=== PATIENT | male | born 1950 | race Two or more races ===

== ENCOUNTER 2020-03-06 07:10 | Inpatient (IN) | payer MEDICARE, OTHER ==
[~2020-03-06] VITALS: Ht 172.7 cm; Wt 68.0 kg
[2020-03-06] MEDS ORDERED: COLACE100 MG ORAL (07:39)
[2020-03-06] MEDS ORDERED: PAXIL20 MG ORAL (07:39)
[2020-03-06] MEDS ORDERED: NORVASC10 MG ORAL (07:39)
[2020-03-06] MEDS ORDERED: BENZTROPINE MESY1 MG ORAL (07:39)
[2020-03-06] MEDS ORDERED: QUETIAPINE FUM100 MG ORAL (07:39)
[2020-03-06 08:03] VITALS: BP 124/75
--- NOTE | 2020-03-06 08:22 | Emergency Room Report ---
History of Present Illness General Chief Complaint: General Complaint Source: EMS Present Illness HPI 69-year-old male presents for evaluation. Presents from snf facility. Per nursing staff they noticed a possible rectal prolapse yesterday. Patient has schizophrenia and is nonverbal at baseline. No signs of distress on arrival. No reported fevers or chills. No runny nose or congestion. No other aggravating relieving factors. No other associated symptoms Allergies: Coded Allergies: No Known Allergies (Unverified , 03/06/20) COVID-19 Screening Contact w/high risk pt: No Recent Travel to affected area: No Experienced COVID-19 symptoms?: No COVID-19 Testing performed SE[employer]ER: Yes COVID-19 Screening: Negative COVID-19 COVID-19 Testing Source: @ FACILITY 01/27 Patient History Past Medical History: COPD, psych hx Past Surgical History: none Pertinent Family History: none Social History: Denies: smoking, alcohol use, drug use Immunizations: UTD Reviewed Nursing Documentation: PMH: Agreed; PSxH: Agreed Nursing Documentation-PMH Hx Hypertension: Yes Hx COPD: Yes History Of Psychiatric Problem: Yes - SCHIZO Review of Systems All Other Systems: limited Physical Exam Vital Signs Date Time Temp Pulse Resp B/P (MAP) Pulse Ox O2 Delivery O2 Flow Rate FiO2 03/06/20 07:14 98.2 82 19 128/76 (93) 98 Room Air 03/06/20 08:03 96 Sp02 EP Interpretation: reviewed, normal General Appearance: no apparent distress, GCS 15, non-toxic, other - nonverbal Head: normocephalic Eyes: bilateral eye normal inspection, bilateral eye PERRL ENT: hearing grossly normal, normal pharynx, no angioedema, normal voice Neck: full range of motion, supple/symm/no masses Respiratory: chest non-tender, lungs clear, normal breath sounds, speaking full sentences Cardiovascular #1: regular rate, rhythm, no edema Gastrointestinal: normal bowel sounds, non tender, soft, non-distended, no guarding, no rebound Rectal: hemorrhoids - External hemorrhoid noted Genitourinary: no CVA tenderness Musculoskeletal: normal inspection Neurologic: other - nonverbal Psychiatric: other - nonverbal Skin: other - See nursing skin notes Lymphatic: normal inspection Medical Decision Making Diagnostic Impression: Primary Impression: Hemorrhoid prolapse Additional Impression: Renal insufficiency ER Course 69-year-old male presents with presumed rectal prolapse from snf facility Differentialhemorrhoids, rectal prolapse, small bowel obstruction Placed on stretcher. After initial history exam reveals elderly male in no acute distress. On exam there is a large thrombosed hemorrhoid noted. No obvious rectal prolapse at this point. Abdomen soft. EKG - NSR no acute ischemic changes interpreted by me Discussed with surgery. Given that we cannot confirm that this hemorrhoid is been there for less than 48 hours it is best advised not to incise in the ED. Patient will be evaluated by surgery for hemorrhoid as well as possible rectal prolapse. Renal deficiency noted on labs. IV fluids given. Patient be admitted to Dr. Smith's service diagnosishemorrhoid prolapse, renal insufficiency Patient admitted to floor in serious condition Labs Test 03/06/20 07:43 03/06/20 08:25 03/06/20 09:43 Prothrombin Time 12.5 SEC (9.30-11.50) Prothromb Time International Ratio 1.1 (0.9-1.1) Activated Partial Thromboplast Time 23 SEC (23-33) Sodium Level 142 MMOL/L (136-145) Potassium Level 3.6 MMOL/L (3.5-5.1) Chloride Level 104 MMOL/L (98-107) Carbon Dioxide Level 30 MMOL/L (21-32) Anion Gap 8 mmol/L (5-15) Blood Urea Nitrogen 20 mg/dL (7-18) Creatinine 1.9 MG/DL (0.55-1.30) Estimat Glomerular Filtration Rate 35.2 mL/min (>60) Glucose Level 85 MG/DL (74-106) Calcium Level 9.3 MG/DL (8.5-10.1) Total Bilirubin 0.2 MG/DL (0.2-1.0) Aspartate Amino Transf (AST/SGOT) 22 U/L (15-37) Alanine Aminotransferase (ALT/SGPT) 25 U/L (12-78) Alkaline Phosphatase 112 U/L (46-116) Total Protein 8.0 G/DL (6.4-8.2) Albumin 3.7 G/DL (3.4-5.0) Globulin 4.3 g/dL Albumin/Globulin Ratio 0.9 (1.0-2.7) Lipase 139 U/L (73-393) White Blood Count 4.4 K/UL (4.8-10.8) Red Blood Count 3.82 M/UL (4.70-6.10) Hemoglobin 12.6 G/DL (14.2-18.0) Hematocrit 40.0 % (42.0-52.0) Mean Corpuscular Volume 105 FL (80-99) Mean Corpuscular Hemoglobin 33.0 PG (27.0-31.0) Mean Corpuscular Hemoglobin Concent 31.4 G/DL (32.0-36.0) Red Cell Distribution Width 11.9 % (11.6-14.8) Platelet Count 172 K/UL (150-450) Mean Platelet Volume 9.1 FL (6.5-10.1) Neutrophils (%) (Auto) 63.7 % (45.0-75.0) Lymphocytes (%) (Auto) 24.8 % (20.0-45.0) Monocytes (%) (Auto) 7.1 % (1.0-10.0) Eosinophils (%) (Auto) 3.2 % (0.0-3.0) Basophils (%) (Auto) 1.2 % (0.0-2.0) EKG Diagnostic Results Rate: normal Rhythm: NSR ST Segments: no acute changes ASA given to the pt in ED: No Rhythm Strip Diag. Results EP Interpretation: yes Rhythm: NSR, no PVC's, no ectopy Last Vital Signs Date Time Temp Pulse Resp B/P (MAP) Pulse Ox O2 Delivery O2 Flow Rate FiO2 03/06/20 08:03 98.2 80 20 124/75 96 Room Air 03/06/20 08:03 96 Status: improved Disposition: ADMITTED INPATIENT Condition: Serious Referrals: Rene Smith DO (PCP) Pravin Weeks MD Mar 06, 2020 08:22
[2020-03-06 08:26] LABS: ANION GAP 8 mmol/L (5-15); BLOOD UREA NITROGEN 20 mg/dL (7-18); CALCIUM 9.3 MG/DL (8.5-10.1); CARBON DIOXIDE 30 MMOL/L (21-32); CHLORIDE 104 MMOL/L (98-107); CREATININE 1.9 MG/DL (0.55-1.30); POTASSIUM 3.6 MMOL/L (3.5-5.1); SODIUM 142 MMOL/L (136-145)
[2020-03-06 08:29] LABS: INR 1.1 (0.9-1.1)
[2020-03-06 08:31] LABS: ALANINE AMINOTRANSFERASE 25 U/L (12-78); ALBUMIN 3.7 G/DL (3.4-5.0); ALBUMIN/GLOBULIN RATIO 0.9 (1.0-2.7); ALKALINE PHOSPHATASE 112 U/L (46-116); ASPARTATE AMINO TRANSFERASE 22 U/L (15-37); BILIRUBIN,TOTAL 0.2 MG/DL (0.2-1.0)
[2020-03-06 08:42] LABS: BASOPHILS % (AUTO) 1.2 % (0.0-2.0); EOSINOPHILS % (AUTO) 3.2 % (0.0-3.0); HEMOGLOBIN 12.6 G/DL (14.2-18.0); LYMPHOCYTES % (AUTO) 24.8 % (20.0-45.0); MEAN CORPUSCULAR VOLUME 105 FL (80-99); MONOCYTES % (AUTO) 7.1 % (1.0-10.0); NEUTROPHILS % (AUTO) 63.7 % (45.0-75.0); PLATELET COUNT 172 K/UL (150-450); RED BLOOD COUNT 3.82 M/UL (4.70-6.10); RED CELL DISTRIBUTION WIDTH 11.9 % (11.6-14.8); WHITE BLOOD COUNT 4.4 K/UL (4.8-10.8)
[2020-03-06 09:30] VITALS: BP 131/80
[2020-03-06 10:01] LABS: APPEARANCE,URINE CLEAR; BILIRUBIN, URINE NEGATIVE (NEGATIVE); COLOR,URINE PALE YELLOW; GLUCOSE, URINE (UA) NEGATIVE (NEGATIVE); KETONES,URINE NEGATIVE (NEGATIVE); LEUKOCYTE ESTERASE ,URINE 3+ (NEGATIVE); NITRITE,URINE NEGATIVE (NEGATIVE); PH,URINE 6 (4.5-8.0); PROTEIN,URINE NEGATIVE (NEGATIVE); UROBILINOGEN,URINE NORMAL MG/DL (0.0-1.0)
--- NOTE | 2020-03-06 10:45 | History and Physical Report ---
DATE OF ADMISSION: 03/06/2020 TIME SEEN: 9 a.m. CONSULTANTS: 1. Manny Wang MD 2. Sheng Martin MD 3. Yolis Cee MD CHIEF COMPLAINT: Rectal prolapse. BRIEF HISTORY: This is a 69-year-old male from [facility], who presents with above-mentioned diagnosis. The staff had noticed it. The patient was brought to [facility], being admitted to medical floor. Currently slightly confused in bed. No complaint. REVIEW OF SYSTEMS: Slightly confused. No chest pain. No shortness of breath. No nausea, vomiting, or diarrhea. PAST MEDICAL HISTORY: Includes hypertension and psych history. PAST SURGICAL HISTORY: Unknown. ALLERGIES: Denies. MEDICATIONS: We will obtain list shortly. SOCIAL HISTORY: Positive smoke. Positive alcohol. Positive marijuana use. OBJECTIVE: GENERAL: Calm in bed, oriented x1, in no acute distress. VITAL SIGNS: Temperature is 98 degrees, pulse 86, respirations 20, blood pressure 124/75. CARDIOVASCULAR: No murmurs. LUNGS: Distant and clear. ABDOMEN: Bowel sounds positive. Nontender. Nondistended. EXTREMITIES: Show no cyanosis or edema. NEUROLOGIC: The patient moves all extremities, slightly weak. LABORATORY AND DIAGNOSTIC DATA: Labs at this time show white count 4.4, H and H 12/40, platelets 172,000. BMP show BUN and creatinine 20/1.9, otherwise normal. INR is 1.1. ASSESSMENT: 1. Hypertension. 2. Psych history. 3. Rectal prolapse. PLAN: 1. Psych treatment. 2. Resume home medications. 3. PT and dietary evaluation. 4. CBC and BMP in the morning. 5. Possible surgery, Cardiology to clear the patient . Rene Smith D.O. DR: AXEL JOB#: [id number] CC:
--- NOTE | 2020-03-06 11:42 | Cardiac Electrophysiology PN ---
Subjective Subjective [id number] Objective Last 24 Hour Vital Signs Date Time Temp Pulse Resp B/P (MAP) Pulse Ox O2 Delivery O2 Flow Rate FiO2 03/06/20 09:30 97.2 59 18 131/80 (97) 97 03/06/20 09:11 98.2 87 19 130/79 99 Room Air 03/06/20 08:03 98.2 80 20 124/75 96 Room Air 03/06/20 08:03 86 20 Room Air 96 03/06/20 07:14 98.2 82 19 128/76 (93) 98 Room Air Laboratory Tests Test 03/06/20 07:43 03/06/20 08:25 03/06/20 09:43 Prothrombin Time 12.5 SEC (9.30-11.50) H Prothromb Time International Ratio 1.1 (0.9-1.1) Activated Partial Thromboplast Time 23 SEC (23-33) Sodium Level 142 MMOL/L (136-145) Potassium Level 3.6 MMOL/L (3.5-5.1) Chloride Level 104 MMOL/L (98-107) Carbon Dioxide Level 30 MMOL/L (21-32) Anion Gap 8 mmol/L (5-15) Blood Urea Nitrogen 20 mg/dL (7-18) H Creatinine 1.9 MG/DL (0.55-1.30) H Estimat Glomerular Filtration Rate 35.2 mL/min (>60) Glucose Level 85 MG/DL (74-106) Calcium Level 9.3 MG/DL (8.5-10.1) Total Bilirubin 0.2 MG/DL (0.2-1.0) Aspartate Amino Transf (AST/SGOT) 22 U/L (15-37) Alanine Aminotransferase (ALT/SGPT) 25 U/L (12-78) Alkaline Phosphatase 112 U/L (46-116) Total Protein 8.0 G/DL (6.4-8.2) Albumin 3.7 G/DL (3.4-5.0) Globulin 4.3 g/dL Albumin/Globulin Ratio 0.9 (1.0-2.7) L Lipase 139 U/L (73-393) White Blood Count 4.4 K/UL (4.8-10.8) L Red Blood Count 3.82 M/UL (4.70-6.10) L Hemoglobin 12.6 G/DL (14.2-18.0) L Hematocrit 40.0 % (42.0-52.0) L Mean Corpuscular Volume 105 FL (80-99) H Mean Corpuscular Hemoglobin 33.0 PG (27.0-31.0) H Mean Corpuscular Hemoglobin Concent 31.4 G/DL (32.0-36.0) L Red Cell Distribution Width 11.9 % (11.6-14.8) Platelet Count 172 K/UL (150-450) Mean Platelet Volume 9.1 FL (6.5-10.1) Neutrophils (%) (Auto) 63.7 % (45.0-75.0) Lymphocytes (%) (Auto) 24.8 % (20.0-45.0) Monocytes (%) (Auto) 7.1 % (1.0-10.0) Eosinophils (%) (Auto) 3.2 % (0.0-3.0) H Basophils (%) (Auto) 1.2 % (0.0-2.0) Urine Color Pale yellow Urine Appearance Clear Urine pH 6 (4.5-8.0) Urine Specific [place] 1.005 (1.005-1.035) Urine Protein Negative (NEGATIVE) Urine Glucose (UA) Negative (NEGATIVE) Urine Ketones Negative (NEGATIVE) Urine Blood 1+ (NEGATIVE) H Urine Nitrite Negative (NEGATIVE) Urine Bilirubin Negative (NEGATIVE) Urine Urobilinogen Normal MG/DL (0.0-1.0) Urine Leukocyte Esterase 3+ (NEGATIVE) H Urine RBC 2-4 /HPF (0 - 0) H Urine WBC 40-60 /HPF (0 - 0) H Urine Squamous Epithelial Cells Occasional /LPF Urine Bacteria Occasional /HPF (NONE) Sheng Martin MD Mar 06, 2020 11:42
[2020-03-06 12:00] VITALS: BP 116/70
--- NOTE | 2020-03-06 14:29 | Consultation ---
History of Present Illness General Date patient seen: Mar 06, 2020 Reason for Hospitalization: General Complaint Present Illness HPI This is a 69-year-old male with multi-medical committees who is a care facility patient psych history identified to have abnormal lesion around rectum thought to be rectal prolapse admitted for further care and management surgery called to evaluate and assist with care. Patient seen, patient evaluated, chart reviewed. Patient states he is well denies any pain no nausea vomiting fever chills states he is eating normal bowel movements and flatus. No complaints otherwise. Labs reviewed no imaging currently Allergies: Coded Allergies: No Known Allergies (Unverified , 03/06/20) COVID-19 Screening Contact w/high risk pt: No Recent Travel to affected area: No Experienced COVID-19 symptoms?: No Medication History Scheduled Amlodipine Besylate (Norvasc), 10 MG ORAL DAILY, (Reported) Benztropine Mesylate* (Benztropine Mesylate*), 1 MG ORAL BID, (Reported) Docusate Sodium* (Colace*), 100 MG ORAL DAILY, (Reported) Paroxetine Hcl* (Paxil*), 20 MG ORAL DAILY, (Reported) Quetiapine Fumarate* (Seroquel*), 100 MG ORAL DAILY, (Reported) Patient History Limited by: medical condition History Provided By: Patient, Medical Record, PMD Healthcare decision maker Resuscitation status Advanced Directive on File Past Medical/Surgical History Past Medical/Surgical History: (1) Hemorrhoid (2) Renal insufficiency (3) Hemorrhoid prolapse Review of Systems Review of Symptoms General ROS: no weight loss or fever Psychological ROS: no depression or mood changes, no memory loss Ophthalmic ROS: no visual changes or eye irritation ENT ROS: no nasal congestion, hearing loss, dizziness Allergy and Immunology ROS: no allergic symptoms or urticaria Hematological and Lymphatic ROS: no swollen glands, unusual bleeding or bruising Endocrine ROS: no polyuria, polydipsia, weight changes, temperature intolerance Respiratory ROS: no cough, shortness of breath, or wheezing Cardiovascular ROS: no chest pain or dyspnea on exertion Gastrointestinal ROS: denies abdominal pain, bright red blood in stool. Musculoskeletal ROS: no myalgias or arthralgias Neurological ROS: no TIA or stroke symptoms Dermatological ROS: no new or changing skin lesions, rashes or pruritis Physical Exam Physical Exam General appearance: alert, cooperative, no distress, appears stated age Head: Normocephalic, without obvious abnormality, atraumatic Eyes: conjunctivae/corneas clear. PERRL, EOM's intact. Fundi benign Throat: Lips, mucosa, and tongue normal. Teeth and gums normal Neck: supple, symmetrical, trachea midline, no adenopathy, thyroid: not enlarged, symmetric, no tenderness/mass/nodules, no carotid bruit and no JVD Lungs: clear to auscultation bilaterally Heart: regular rate and rhythm, S1, S2 normal, no murmur, click, rub or gallop Abdomen: soft, non-tender. Bowel sounds normal. No masses, no organomegaly Extremities: extremities normal, atraumatic, no cyanosis or edema Pulses: 2+ and symmetric Skin: Skin color, texture, turgor normal. No rashes or lesions Neurologic: Grossly normal rectal Left lateral thrombosed hemorrhoid identified nontender soft Last 24 Hour Vital Signs Date Time Temp Pulse Resp B/P (MAP) Pulse Ox O2 Delivery O2 Flow Rate FiO2 03/06/20 12:00 97.9 70 18 116/70 (85) 94 03/06/20 09:52 Room Air 03/06/20 09:30 97.2 59 18 131/80 (97) 97 03/06/20 09:11 98.2 87 19 130/79 99 Room Air 03/06/20 08:03 98.2 80 20 124/75 96 Room Air 03/06/20 08:03 86 20 Room Air 96 03/06/20 07:14 98.2 82 19 128/76 (93) 98 Room Air Laboratory Tests Test 03/06/20 07:43 03/06/20 08:25 03/06/20 09:43 Prothrombin Time 12.5 SEC (9.30-11.50) H Prothromb Time International Ratio 1.1 (0.9-1.1) Activated Partial Thromboplast Time 23 SEC (23-33) Sodium Level 142 MMOL/L (136-145) Potassium Level 3.6 MMOL/L (3.5-5.1) Chloride Level 104 MMOL/L (98-107) Carbon Dioxide Level 30 MMOL/L (21-32) Anion Gap 8 mmol/L (5-15) Blood Urea Nitrogen 20 mg/dL (7-18) H Creatinine 1.9 MG/DL (0.55-1.30) H Estimat Glomerular Filtration Rate 35.2 mL/min (>60) Glucose Level 85 MG/DL (74-106) Calcium Level 9.3 MG/DL (8.5-10.1) Total Bilirubin 0.2 MG/DL (0.2-1.0) Aspartate Amino Transf (AST/SGOT) 22 U/L (15-37) Alanine Aminotransferase (ALT/SGPT) 25 U/L (12-78) Alkaline Phosphatase 112 U/L (46-116) Total Protein 8.0 G/DL (6.4-8.2) Albumin 3.7 G/DL (3.4-5.0) Globulin 4.3 g/dL Albumin/Globulin Ratio 0.9 (1.0-2.7) L Lipase 139 U/L (73-393) White Blood Count 4.4 K/UL (4.8-10.8) L Red Blood Count 3.82 M/UL (4.70-6.10) L Hemoglobin 12.6 G/DL (14.2-18.0) L Hematocrit 40.0 % (42.0-52.0) L Mean Corpuscular Volume 105 FL (80-99) H Mean Corpuscular Hemoglobin 33.0 PG (27.0-31.0) H Mean Corpuscular Hemoglobin Concent 31.4 G/DL (32.0-36.0) L Red Cell Distribution Width 11.9 % (11.6-14.8) Platelet Count 172 K/UL (150-450) Mean Platelet Volume 9.1 FL (6.5-10.1) Neutrophils (%) (Auto) 63.7 % (45.0-75.0) Lymphocytes (%) (Auto) 24.8 % (20.0-45.0) Monocytes (%) (Auto) 7.1 % (1.0-10.0) Eosinophils (%) (Auto) 3.2 % (0.0-3.0) H Basophils (%) (Auto) 1.2 % (0.0-2.0) Urine Color Pale yellow Urine Appearance Clear Urine pH 6 (4.5-8.0) Urine Specific [place] 1.005 (1.005-1.035) Urine Protein Negative (NEGATIVE) Urine Glucose (UA) Negative (NEGATIVE) Urine Ketones Negative (NEGATIVE) Urine Blood 1+ (NEGATIVE) H Urine Nitrite Negative (NEGATIVE) Urine Bilirubin Negative (NEGATIVE) Urine Urobilinogen Normal MG/DL (0.0-1.0) Urine Leukocyte Esterase 3+ (NEGATIVE) H Urine RBC 2-4 /HPF (0 - 0) H Urine WBC 40-60 /HPF (0 - 0) H Urine Squamous Epithelial Cells Occasional /LPF Urine Bacteria Occasional /HPF (NONE) Height (Feet): 5 Height (Inches): 8.00 Weight (Pounds): 150 Medications Current Medications Medications (Trade) Dose Ordered Sig/Shine Route PRN Reason Start Time Stop Time Status Last Admin Dose Admin Clonidine HCl (Catapres Tab) 0.1 mg Q4H PRN ORAL For High Blood Pressure 03/06/20 11:45 06/04/20 11:44 Heparin Sodium (Porcine) (Heparin 5000 units/ml) 5,000 units Q12HR SUBQ 03/06/20 21:00 04/20/20 20:59 Lorazepam (Ativan) 1 mg Q6H PRN ORAL For Anxiety 03/06/20 14:00 03/13/20 13:59 Paroxetine HCl (Paxil) 20 mg DAILY ORAL 03/07/20 09:00 04/06/20 08:59 Quetiapine Fumarate (SEROqueL) 100 mg QHS ORAL 03/06/20 21:00 04/20/20 20:59 Assessment/Plan Problem List: (1) Hemorrhoid prolapse Assessment & Plan: See below ICD Codes: K64.8 - Other hemorrhoids SNOMED: 20106256 (2) Rectal prolapse Assessment & Plan: 69-year-old male abnormal rectal perirectal lesion thought to be potential rectal prolapse. On further evaluation this is a thrombosed hemorrhoid. Currently soft nontender mobile patient having normal bowel movements good rectal function examination proceeded without significant discomfort. Likely low bit more chronic than anticipated or noticed. No acute surgical intervention indicated recommended at this time recommend local care with hemorrhoid cream as needed. Okay for diet bowel regimen will monitor. Thank you for let me participate in patient's care ICD Codes: K62.3 - Rectal prolapse SNOMED: 32911571 Manny Wang Mar 06, 2020 14:29
[2020-03-06 16:00] VITALS: BP 125/80
--- NOTE | 2020-03-06 17:15 | Consultation ---
DATE OF CONSULTATION: 03/06/2020 CARDIOLOGY CONSULTATION CONSULTING PHYSICIAN: Sheng Martin MD REFERRING PHYSICIAN: Rene Smith DO REASON FOR CONSULTATION: Management of hypertension and preoperative clearance prior to rectal surgery. HISTORY OF PRESENT ILLNESS: The patient is a 69-year-old gentleman from [facility] with history of hypertension and schizophrenia, who was brought into the hospital for rectal prolapse. The patient is primarily nonverbal at baseline, although he is alert and responsive. The patient's blood pressure in the ER was 120/76 and heart rate of 82. Cardiology consultation was obtained for further followup and management. REVIEW OF SYSTEMS: Negative other than what was mentioned in history of present illness and is limited in view of his psych history. PAST MEDICAL HISTORY: As mentioned above. FAMILY HISTORY: Noncontributory. SOCIAL HISTORY: He lives in custodial. Does not smoke or drink alcohol. PHYSICAL EXAMINATION: VITAL SIGNS: Blood pressure is 131/80, pulse 69, respirations 18, and temperature 97.2. HEAD AND NECK: Showed no JVD. LUNGS: Clear. CARDIOVASCULAR: Shows regular S1 and S2 with no gallop or murmur. ABDOMEN: Soft. EXTREMITIES: No pitting edema. LABORATORY AND DIAGNOSTIC DATA: His labs show white count of 4.4, hematocrit 12.7, hematocrit of 40, and platelet count 172,000. Sodium 142, potassium 3.3, BUN of 20, creatinine 1.9, and glucose of 185. INR is 1.1. Urinalysis shows many bacteria, 1+ blood. ASSESSMENT AND PLAN: 1. History of hypertension. Blood pressure currently is stable. I will add p.r.n. clonidine to his medical regimen. 2. Rectal prolapse. We will get EKG and echocardiogram for preoperative evaluation in case the patient would need surgery. 3. History of schizophrenia. Thank you very much for allowing me to participate in the care of this patient. Please do not hesitate to contact me for any questions regarding my evaluation. Sheng Martin M.D. DR: DANIEL JOB#: [id number] CC:
[2020-03-06 20:00] VITALS: BP 99/74
--- NOTE | 2020-03-06 21:15 | Consultation ---
DATE OF CONSULTATION: 03/06/2020 CONSULTING PHYSICIAN: Yolis Cee MD. HISTORY OF PRESENT ILLNESS: Patient is a 69-year-old male patient. This patient came to the hospital because he had rectal prolapse. Came from [facility], but he has confusion, altered mental status. Patient is confused in bed and had some altered mental status, agitation, irritability. Came in from [facility]. He is confused, disorganized, and altered mental status. Currently, his cognition has declined below his baseline, worsened by stress of his medical illness. I saw and assessed the patient at bedside. He is very confused, disorganized. MEDICAL PROBLEMS: He has history of hemorrhoids , and rectal prolapse. ALLERGIES: No known drug allergies. PSYCHOTROPIC MEDICATIONS ON ADMISSION: Patient is currently on a psychotropic regimen consisting of Seroquel 100 mg at bedtime, Paxil 20 mg daily, Ativan 1 mg twice a day. SUBSTANCE ABUSE HISTORY: Patient has history of marijuana and alcohol abuse. FAMILY PSYCHIATRIC HISTORY: Denies. PAIN ASSESSMENT: 11/25 pain. DEVELOPMENTAL PROBLEMS: None. SOCIAL HISTORY: Patient is currently living . He is financially supported by [employer] and Medicare. PSYCHIATRIC HISTORY: History of paranoid schizophrenia, acute exacerbation, rule out depression with psychotic features. He is a poor historian. STRENGTHS: He is motivated to get better. He is relatively healthy. WEAKNESSES AND LIABILITIES: He is impulsive. He has got minimal support system. MENTAL STATUS EXAMINATION: This is a 69-year-old male. His appearance is disheveled. Attitude, irritable and agitated. Affect, guarded and restricted. Intellect poor. Mood, depressed and anxious. Motor activity, psychomotor agitation. Attention span is poor. Orientation x2. Speech is pressured, nonsensical. Thought process, disorganized and illogical. Insight and judgment is poor. DIAGNOSES: 1. Paranoid schizophrenia, acute exacerbation. 2. No secondary. 3. Medical, denies. 4. Psychosocial stressors, financial. 5. Functional impairment is mild. PLAN: Ativan 1 mg every 6 hours p.r.n. anxiety and agitation, Seroquel 100 mg at bedtime, Paxil 20 mg daily. Twenty minutes of cognitive behavioral therapy to help him identify his automatic negative thoughts, help him convert his negative thoughts to more positive thoughts to reduce depression, anxiety, suicidality. Twenty minutes of cognitive behavioral therapy provided. Chart reviewed. Discussed with staff. Seen and assessed in his room. Yolis Cee M.D. DR: SHERRY JOB#: [id number] CC:
[2020-03-06] MEDS: Heparin 5000 units/ml inj SUBQ SCH (21:29)
[2020-03-07] VITALS: BP 100/71
[2020-03-07 04:00] VITALS: BP 112/82
[2020-03-07 07:24] LABS: BASOPHILS % (AUTO) 1.3 % (0.0-2.0); EOSINOPHILS % (AUTO) 2.8 % (0.0-3.0); HEMATOCRIT 39.6 % (42.0-52.0); HEMOGLOBIN 12.8 G/DL (14.2-18.0); LYMPHOCYTES % (AUTO) 33.4 % (20.0-45.0); MEAN CORPUSCULAR VOLUME 103 FL (80-99); MONOCYTES % (AUTO) 9.8 % (1.0-10.0); NEUTROPHILS % (AUTO) 52.8 % (45.0-75.0); PLATELET COUNT 212 K/UL (150-450); RED BLOOD COUNT 3.86 M/UL (4.70-6.10); RED CELL DISTRIBUTION WIDTH 11.4 % (11.6-14.8); WHITE BLOOD COUNT 6.2 K/UL (4.8-10.8)
[2020-03-07 08:00] VITALS: BP 148/87
[2020-03-07 08:03] LABS: ANION GAP 9 mmol/L (5-15); BLOOD UREA NITROGEN 26 mg/dL (7-18); CALCIUM 9.2 MG/DL (8.5-10.1); CARBON DIOXIDE 28 MMOL/L (21-32); CHLORIDE 101 MMOL/L (98-107); CHOLESTEROL 142 MG/DL (< 200); HDL CHOLESTEROL 62 MG/DL (40-60); POTASSIUM 4.4 MMOL/L (3.5-5.1); SODIUM 138 MMOL/L (136-145); TRIGLYCERIDES 67 MG/DL (30-150)
--- NOTE | 2020-03-07 09:15 | Progress Note ---
DATE: 03/07/2020 SUBJECTIVE: This is a 69-year-old male patient. He has rectal prolapse, but this patient also has renal insufficiency. He has altered mental status, confusion, and decline in cognition below his baseline. That is why his attending has requested daily psychiatric consultation for the patient. MENTAL STATUS EXAMINATION: The patient is a 69-year-old male. Appearance is disheveled. Attitude, irritable and agitated. Affect, guarded and restricted. Intellect, poor. Mood, depressed and anxious. Motor activity, psychomotor agitation. Attention span is poor. Orientation x2. Speech is low volume and slurred. Thought process, disorganized and illogical. Insight and judgment is poor. DIAGNOSIS: Paranoid schizophrenia, acute exacerbation. PLAN: Treat the patient with Ativan 1 mg every six hours p.r.n. anxiety or agitation, Seroquel 100 mg nightly, and Paxil 20 mg daily. A 20 minutes of cognitive behavioral therapy to help him identify his automatic negative thoughts and help him convert his negative thoughts to more positive thoughts to reduce depression, anxiety, and mood lability. Chart reviewed. Discussed with staff. Seen and assessed in his room. Yolis Cee M.D. DR: HENOK JOB#: [id number] CC:
--- NOTE | 2020-03-07 09:25 | General Progress Note ---
Assessment/Plan Problem List: (1) HTN (hypertension) ICD Codes: I10 - Essential (primary) hypertension SNOMED: 87683006 (2) Psychiatric disorder ICD Codes: F99 - Mental disorder, not otherwise specified SNOMED: 35197223 (3) Renal insufficiency ICD Codes: N28.9 - Disorder of kidney and ureter, unspecified SNOMED: 715544636, 774208842 (4) Rectal prolapse ICD Codes: K62.3 - Rectal prolapse SNOMED: 19721785 Status: unchanged Assessment/Plan: pt diet sx f/u cbc bmp amf Subjective Constitutional: Reports: weakness Allergies: Coded Allergies: No Known Allergies (Unverified , 03/06/20) All Systems: reviewed and negative except above Subjective sl confused in room Objective Last 24 Hour Vital Signs Date Time Temp Pulse Resp B/P (MAP) Pulse Ox O2 Delivery O2 Flow Rate FiO2 03/07/20 04:00 98.4 68 20 112/82 (92) 97 03/07/20 00:00 98.2 80 20 100/71 (81) 94 03/06/20 20:05 Room Air 03/06/20 20:00 98.1 76 18 99/74 (82) 94 03/06/20 16:00 99.1 73 18 125/80 (95) 94 03/06/20 12:00 97.9 70 18 116/70 (85) 94 03/06/20 09:52 Room Air 03/06/20 09:30 97.2 59 18 131/80 (97) 97 Intake and Output 03/06/20 03/07/20 19:00 07:00 Intake Total 740 ml 800 ml Balance 740 ml 800 ml Intake Oral 240 ml 800 ml IV Total 500 ml # Voids 3 Laboratory Tests 03/06/20 09:43: Urine Color Pale yellow, Urine Appearance Clear, Urine pH 6, Urine Specific [place] 1.005, Urine Protein Negative, Urine Glucose (UA) Negative, Urine Ketones Negative, Urine Blood 1+H, Urine Nitrite Negative, Urine Bilirubin Negative, Urine Urobilinogen Normal, Urine Leukocyte Esterase 3+H, Urine RBC 2- 4H, Urine WBC 40-60H, Urine Squamous Epithelial Cells Occasional, Urine Bacteria Occasional 03/07/20 05:15: White Blood Count 6.2, Red Blood Count 3.86L, Hemoglobin 12.8L, Hematocrit 39.6L , Mean Corpuscular Volume 103H, Mean Corpuscular Hemoglobin 33.0H, Mean Corpuscular Hemoglobin Concent 32.2, Red Cell Distribution Width 11.4L, Platelet Count 212, Mean Platelet Volume 7.7, Neutrophils (%) (Auto) 52.8, Lymphocytes (%) (Auto) 33.4, Monocytes (%) (Auto) 9.8, Eosinophils (%) (Auto) 2.8, Basophils (%) (Auto) 1.3, Sodium Level 138, Potassium Level 4.4, Chloride Level 101, Carbon Dioxide Level 28, Anion Gap 9, Blood Urea Nitrogen 26H, Creatinine 2.0H, Estimat Glomerular Filtration Rate 33.2, Glucose Level 82, Calcium Level 9.2, Pro-B-Type Natriuretic Peptide 458H, Triglycerides Level 67, Cholesterol Level 142, LDL Cholesterol 67, HDL Cholesterol 62H, Cholesterol/HDL Ratio 2.3L, Thyroid Stimulating Hormone (TSH) 5.270H, Free Thyroxine 1.26 Height (Feet): 5 Height (Inches): 8.00 Weight (Pounds): 150 General Appearance: lethargic, confused EENT: normal ENT inspection Neck: normal alignment Cardiovascular: normal peripheral pulses, normal rate, regular rhythm Respiratory/Chest: chest wall non-tender, lungs clear, normal breath sounds Abdomen: normal bowel sounds, non tender, soft Extremities: normal inspection Edema: no edema noted Arm (L), no edema noted Arm (R), no edema noted Leg (L), no edema noted Leg (R), no edema noted Pedal (L), no edema noted Pedal (R), no edema noted Generalized Neurologic: motor weakness Skin: normal pigmentation, warm/dry Rene Smith DO Mar 07, 2020 09:25
[2020-03-07] MEDS: PARoxetine HCL 20mg tab ORAL SCH (09:36)
[2020-03-07] MEDS: Heparin 5000 units/ml inj SUBQ SCH ×2 (09:37→20:33)
[2020-03-07 12:00] VITALS: BP 133/76
--- NOTE | 2020-03-07 14:19 | Cardiac Electrophysiology PN ---
Subjective Subjective Alert in NAD. No CP or SOB. Off tele Objective Last 24 Hour Vital Signs Date Time Temp Pulse Resp B/P (MAP) Pulse Ox O2 Delivery O2 Flow Rate FiO2 03/07/20 09:00 Room Air 03/07/20 08:00 97.7 77 18 148/87 (107) 95 03/07/20 04:00 98.4 68 20 112/82 (92) 97 03/07/20 00:00 98.2 80 20 100/71 (81) 94 03/06/20 20:05 Room Air 03/06/20 20:00 98.1 76 18 99/74 (82) 94 03/06/20 16:00 99.1 73 18 125/80 (95) 94 Intake and Output 03/06/20 03/07/20 19:00 07:00 Intake Total 740 ml 800 ml Balance 740 ml 800 ml Intake Oral 240 ml 800 ml IV Total 500 ml # Voids 3 Laboratory Tests Test 03/07/20 05:15 White Blood Count 6.2 K/UL (4.8-10.8) Red Blood Count 3.86 M/UL (4.70-6.10) L Hemoglobin 12.8 G/DL (14.2-18.0) L Hematocrit 39.6 % (42.0-52.0) L Mean Corpuscular Volume 103 FL (80-99) H Mean Corpuscular Hemoglobin 33.0 PG (27.0-31.0) H Mean Corpuscular Hemoglobin Concent 32.2 G/DL (32.0-36.0) Red Cell Distribution Width 11.4 % (11.6-14.8) L Platelet Count 212 K/UL (150-450) Mean Platelet Volume 7.7 FL (6.5-10.1) Neutrophils (%) (Auto) 52.8 % (45.0-75.0) Lymphocytes (%) (Auto) 33.4 % (20.0-45.0) Monocytes (%) (Auto) 9.8 % (1.0-10.0) Eosinophils (%) (Auto) 2.8 % (0.0-3.0) Basophils (%) (Auto) 1.3 % (0.0-2.0) Sodium Level 138 MMOL/L (136-145) Potassium Level 4.4 MMOL/L (3.5-5.1) Chloride Level 101 MMOL/L (98-107) Carbon Dioxide Level 28 MMOL/L (21-32) Anion Gap 9 mmol/L (5-15) Blood Urea Nitrogen 26 mg/dL (7-18) H Creatinine 2.0 MG/DL (0.55-1.30) H Estimat Glomerular Filtration Rate 33.2 mL/min (>60) Glucose Level 82 MG/DL (74-106) Calcium Level 9.2 MG/DL (8.5-10.1) Pro-B-Type Natriuretic Peptide 458 pg/mL (0-125) H Triglycerides Level 67 MG/DL (30-150) Cholesterol Level 142 MG/DL (< 200) LDL Cholesterol 67 mg/dL (<100) HDL Cholesterol 62 MG/DL (40-60) H Cholesterol/HDL Ratio 2.3 (3.3-4.4) L Thyroid Stimulating Hormone (TSH) 5.270 uiU/mL (0.358-3.740) Free Thyroxine 1.26 NG/DL (0.76-1.46) Microbiology Date/Time Source Procedure Growth Status 03/06/20 09:43 Urine,Clean Catch Urine Culture - Preliminary NO GROWTH AFTER 24 HOURS Resulted Objective 1. Hypertension. Blood pressure currently is stable. On p.r.n. clonidine to his medical regimen. 2. Rectal prolapse.Actually its hemorrhoid per Dr Wang. No surgery scheduled. EKG RBBB and LAFB and echocardiogram Nl EF 3. History of schizophrenia. Sheng Martin MD Mar 07, 2020 14:19
[2020-03-07 16:00] VITALS: BP 132/79
--- NOTE | 2020-03-07 16:31 | Surgery Progress Note ---
Surgery Progress Note Subjective Symptoms: improved, pain absent, tolerating diet, voiding well, passing flatus , BM Objective Last 24 Hour Vital Signs Date Time Temp Pulse Resp B/P (MAP) Pulse Ox O2 Delivery O2 Flow Rate FiO2 03/07/20 09:00 Room Air 03/07/20 08:00 97.7 77 18 148/87 (107) 95 03/07/20 04:00 98.4 68 20 112/82 (92) 97 03/07/20 00:00 98.2 80 20 100/71 (81) 94 03/06/20 20:05 Room Air 03/06/20 20:00 98.1 76 18 99/74 (82) 94 I&O Intake and Output 03/06/20 03/07/20 19:00 07:00 Intake Total 740 ml 800 ml Balance 740 ml 800 ml Intake Oral 240 ml 800 ml IV Total 500 ml # Voids 3 Cardiovascular: RSR Respiratory: clear Abdomen: soft, non-tender, present bowel sounds Extremities: no edema, no tenderness, no cyanosis Laboratory Tests Test 03/07/20 05:15 White Blood Count 6.2 K/UL (4.8-10.8) Red Blood Count 3.86 M/UL (4.70-6.10) L Hemoglobin 12.8 G/DL (14.2-18.0) L Hematocrit 39.6 % (42.0-52.0) L Mean Corpuscular Volume 103 FL (80-99) H Mean Corpuscular Hemoglobin 33.0 PG (27.0-31.0) H Mean Corpuscular Hemoglobin Concent 32.2 G/DL (32.0-36.0) Red Cell Distribution Width 11.4 % (11.6-14.8) L Platelet Count 212 K/UL (150-450) Mean Platelet Volume 7.7 FL (6.5-10.1) Neutrophils (%) (Auto) 52.8 % (45.0-75.0) Lymphocytes (%) (Auto) 33.4 % (20.0-45.0) Monocytes (%) (Auto) 9.8 % (1.0-10.0) Eosinophils (%) (Auto) 2.8 % (0.0-3.0) Basophils (%) (Auto) 1.3 % (0.0-2.0) Sodium Level 138 MMOL/L (136-145) Potassium Level 4.4 MMOL/L (3.5-5.1) Chloride Level 101 MMOL/L (98-107) Carbon Dioxide Level 28 MMOL/L (21-32) Anion Gap 9 mmol/L (5-15) Blood Urea Nitrogen 26 mg/dL (7-18) H Creatinine 2.0 MG/DL (0.55-1.30) H Estimat Glomerular Filtration Rate 33.2 mL/min (>60) Glucose Level 82 MG/DL (74-106) Calcium Level 9.2 MG/DL (8.5-10.1) Pro-B-Type Natriuretic Peptide 458 pg/mL (0-125) H Triglycerides Level 67 MG/DL (30-150) Cholesterol Level 142 MG/DL (< 200) LDL Cholesterol 67 mg/dL (<100) HDL Cholesterol 62 MG/DL (40-60) H Cholesterol/HDL Ratio 2.3 (3.3-4.4) L Thyroid Stimulating Hormone (TSH) 5.270 uiU/mL (0.358-3.740) Free Thyroxine 1.26 NG/DL (0.76-1.46) Plan Problems: (1) Hemorrhoid prolapse Assessment & Plan: See below (2) Rectal prolapse Assessment & Plan: 69-year-old male abnormal rectal perirectal lesion thought to be potential rectal prolapse. On further evaluation this is a thrombosed hemorrhoid. Currently soft nontender mobile patient having normal bowel movements good rectal function examination proceeded without significant discomfort. Likely low bit more chronic than anticipated or noticed. No acute surgical intervention indicated recommended at this time recommend local care with hemorrhoid cream as needed. Okay for diet bowel regimen will monitor. Thank you for let me participate in patient's care stable comfortable walking around no complaints d/c planning Manny Wang Mar 07, 2020 16:31
[2020-03-07] MEDS: LORazepam 1mg tab ORAL PRN ×2 (17:47→22:16)
[2020-03-07 20:00] VITALS: BP 119/76
[2020-03-08] VITALS: BP 120/73
[2020-03-08 04:00] VITALS: BP 126/71
[2020-03-08 06:26] LABS: BASOPHILS % (AUTO) 1.5 % (0.0-2.0); EOSINOPHILS % (AUTO) 4.9 % (0.0-3.0); HEMATOCRIT 36.4 % (42.0-52.0); HEMOGLOBIN 11.7 G/DL (14.2-18.0); LYMPHOCYTES % (AUTO) 36.3 % (20.0-45.0); MEAN CORPUSCULAR VOLUME 103 FL (80-99); MONOCYTES % (AUTO) 9.9 % (1.0-10.0); NEUTROPHILS % (AUTO) 47.4 % (45.0-75.0); PLATELET COUNT 167 K/UL (150-450); RED BLOOD COUNT 3.54 M/UL (4.70-6.10); RED CELL DISTRIBUTION WIDTH 11.6 % (11.6-14.8); WHITE BLOOD COUNT 4.2 K/UL (4.8-10.8)
[2020-03-08 07:05] LABS: ANION GAP 8 mmol/L (5-15); BLOOD UREA NITROGEN 23 mg/dL (7-18); CALCIUM 8.4 MG/DL (8.5-10.1); CARBON DIOXIDE 28 MMOL/L (21-32); CHLORIDE 103 MMOL/L (98-107); CREATININE 1.8 MG/DL (0.55-1.30); POTASSIUM 3.9 MMOL/L (3.5-5.1); SODIUM 139 MMOL/L (136-145)
[2020-03-08 08:00] VITALS: BP 126/64
[2020-03-08] MEDS: PARoxetine HCL 20mg tab ORAL SCH (08:18)
[2020-03-08] MEDS: Heparin 5000 units/ml inj SUBQ SCH ×2 (08:23→21:00)
--- NOTE | 2020-03-08 09:20 | General Progress Note ---
Assessment/Plan Problem List: (1) HTN (hypertension) ICD Codes: I10 - Essential (primary) hypertension SNOMED: 05779259 (2) Psychiatric disorder ICD Codes: F99 - Mental disorder, not otherwise specified SNOMED: 44430668 (3) Renal insufficiency ICD Codes: N28.9 - Disorder of kidney and ureter, unspecified SNOMED: 160532981, 934286350 (4) Rectal prolapse ICD Codes: K62.3 - Rectal prolapse SNOMED: 95711371 Status: unchanged Assessment/Plan: pt diet sx f/u cbc bmp amf Subjective Allergies: Coded Allergies: No Known Allergies (Unverified , 03/06/20) All Systems: reviewed and negative except above Subjective sl confused in room Objective Last 24 Hour Vital Signs Date Time Temp Pulse Resp B/P (MAP) Pulse Ox O2 Delivery O2 Flow Rate FiO2 03/08/20 08:18 Room Air 03/08/20 08:00 97.5 76 18 126/64 (84) 100 03/08/20 04:00 98.5 81 20 126/71 (89) 97 03/08/20 00:00 98.3 83 20 120/73 (89) 99 03/07/20 21:00 Room Air 03/07/20 20:00 98.1 81 20 119/76 (90) 98 03/07/20 16:00 98.8 82 18 132/79 (96) 97 03/07/20 12:00 98.1 79 18 133/76 (95) 98 Intake and Output 03/07/20 03/08/20 19:00 07:00 Intake Total 1200 ml 600 ml Balance 1200 ml 600 ml Intake Oral 600 ml Other 1200 ml # Voids 3 Laboratory Tests 03/08/20 05:30: White Blood Count 4.2L, Red Blood Count 3.54L, Hemoglobin 11.7L, Hematocrit 36.4L, Mean Corpuscular Volume 103H, Mean Corpuscular Hemoglobin 33.1H, Mean Corpuscular Hemoglobin Concent 32.2, Red Cell Distribution Width 11.6, Platelet Count 167, Mean Platelet Volume 7.8, Neutrophils (%) (Auto) 47.4, Lymphocytes (% ) (Auto) 36.3, Monocytes (%) (Auto) 9.9, Eosinophils (%) (Auto) 4.9H, Basophils (%) (Auto) 1.5, Sodium Level 139, Potassium Level 3.9, Chloride Level 103, Carbon Dioxide Level 28, Anion Gap 8, Blood Urea Nitrogen 23H, Creatinine 1.8H, Estimat Glomerular Filtration Rate 37.5, Glucose Level 125H, Calcium Level 8.4L Height (Feet): 5 Height (Inches): 8.00 Weight (Pounds): 150 General Appearance: lethargic EENT: normal ENT inspection Neck: normal alignment Cardiovascular: normal peripheral pulses, normal rate, regular rhythm Respiratory/Chest: chest wall non-tender, lungs clear, normal breath sounds Abdomen: normal bowel sounds, non tender, soft Extremities: normal inspection Edema: no edema noted Arm (L), no edema noted Arm (R), no edema noted Leg (L), no edema noted Leg (R), no edema noted Pedal (L), no edema noted Pedal (R), no edema noted Generalized Neurologic: motor weakness Skin: normal pigmentation, warm/dry Rene Smith DO Mar 08, 2020 09:20
[2020-03-08 11:59] VITALS: BP 135/92
--- NOTE | 2020-03-08 12:14 | Consultation ---
Consult Note Consult Note I am asked to evaluate the patient at the request of Dr. Rene Smith for renal failure Patient seen in room 401. He is uncooperative. He is not a historian. Laboratory data are reviewed. Limited examination done due to patient's uncooperativeness. Emergency room note: 69-year-old male presents for evaluation. Presents from [facility] facility. Per nursing staff they noticed a possible rectal prolapse yesterday. Patient has schizophrenia and is nonverbal at baseline. No signs of distress on arrival. No reported fevers or chills. No runny nose or congestion. No other aggravating relieving factors. 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 Assessment/Plan Renal failure most likely chronic, may have an acute component superimposed. Evidence of UTI Anemia Hypothyroidism Hemorrhoid prolapse History of hypertension Schizophrenia Suggestions: Avoid nephrotoxic's Kidney ultrasound and chest x-ray ordered Keep the blood pressure in check Anemia work-up Continue per psych management Keep hydrated Flomax at bedtime Monitor renal parameters. Patient does not cooperate with physical examination. However I spent total of 1 hour on this patient to do the proper needed physical examination reviewed the old records from nursing homes (since patient does not have prior admission to [facility] ) and discussed with PMD. Clay Ruggiero MD Mar 08, 2020 12:14
[2020-03-08 13:44] LABS: ALANINE AMINOTRANSFERASE 22 U/L (12-78); ALBUMIN 3.2 G/DL (3.4-5.0); ALKALINE PHOSPHATASE 90 U/L (46-116); ASPARTATE AMINO TRANSFERASE 30 U/L (15-37); BILIRUBIN,DIRECT 0.1 MG/DL (0.0-0.3); BILIRUBIN,TOTAL 0.2 MG/DL (0.2-1.0); FERRITIN 58 NG/ML (8-388); PHOSPHORUS 3.1 MG/DL (2.5-4.9)
[2020-03-08] MEDS: LORazepam 1mg tab ORAL PRN (14:04)
[2020-03-08 14:24] LABS: % IRON SATURATION 45 % (15-50); IRON 112 ug/dL (50-175); TOTAL IRON BINDING CAPACITY 247 ug/dL (250-450)
--- NOTE | 2020-03-08 15:00 | Surgery Progress Note ---
Surgery Progress Note Subjective Symptoms: improved, pain absent, tolerating diet, voiding well, passing flatus , BM Objective Last 24 Hour Vital Signs Date Time Temp Pulse Resp B/P (MAP) Pulse Ox O2 Delivery O2 Flow Rate FiO2 03/08/20 11:59 98.0 63 16 135/92 (106) 94 03/08/20 08:18 Room Air 03/08/20 08:00 97.5 76 18 126/64 (84) 100 03/08/20 04:00 98.5 81 20 126/71 (89) 97 03/08/20 00:00 98.3 83 20 120/73 (89) 99 03/07/20 21:00 Room Air 03/07/20 20:00 98.1 81 20 119/76 (90) 98 03/07/20 16:00 98.8 82 18 132/79 (96) 97 I&O Intake and Output 03/07/20 03/08/20 19:00 07:00 Intake Total 1200 ml 600 ml Balance 1200 ml 600 ml Intake Oral 600 ml Other 1200 ml # Voids 3 Dressing: dry Wound: clean Cardiovascular: RSR Respiratory: clear Abdomen: soft, non-tender, present bowel sounds Extremities: no edema, no tenderness, no cyanosis Laboratory Tests Test 03/08/20 05:30 White Blood Count 4.2 K/UL (4.8-10.8) L Red Blood Count 3.54 M/UL (4.70-6.10) L Hemoglobin 11.7 G/DL (14.2-18.0) L Hematocrit 36.4 % (42.0-52.0) L Mean Corpuscular Volume 103 FL (80-99) H Mean Corpuscular Hemoglobin 33.1 PG (27.0-31.0) H Mean Corpuscular Hemoglobin Concent 32.2 G/DL (32.0-36.0) Red Cell Distribution Width 11.6 % (11.6-14.8) Platelet Count 167 K/UL (150-450) Mean Platelet Volume 7.8 FL (6.5-10.1) Neutrophils (%) (Auto) 47.4 % (45.0-75.0) Lymphocytes (%) (Auto) 36.3 % (20.0-45.0) Monocytes (%) (Auto) 9.9 % (1.0-10.0) Eosinophils (%) (Auto) 4.9 % (0.0-3.0) H Basophils (%) (Auto) 1.5 % (0.0-2.0) Sodium Level 139 MMOL/L (136-145) Potassium Level 3.9 MMOL/L (3.5-5.1) Chloride Level 103 MMOL/L (98-107) Carbon Dioxide Level 28 MMOL/L (21-32) Anion Gap 8 mmol/L (5-15) Blood Urea Nitrogen 23 mg/dL (7-18) H Creatinine 1.8 MG/DL (0.55-1.30) H Estimat Glomerular Filtration Rate 37.5 mL/min (>60) Glucose Level 125 MG/DL (74-106) H Hemoglobin A1c 5.8 % (4.3-6.0) Uric Acid 5.9 MG/DL (2.6-7.2) Calcium Level 8.4 MG/DL (8.5-10.1) L Phosphorus Level 3.1 MG/DL (2.5-4.9) Magnesium Level 2.1 MG/DL (1.8-2.4) Iron Level 112 ug/dL (50-175) Total Iron Binding Capacity 247 ug/dL (250-450) L Percent Iron Saturation 45 % (15-50) Unsaturated Iron Binding 135 ug/dL (112-346) Ferritin 58 NG/ML (8-388) Total Bilirubin 0.2 MG/DL (0.2-1.0) Direct Bilirubin 0.1 MG/DL (0.0-0.3) Aspartate Amino Transf (AST/SGOT) 30 U/L (15-37) Alanine Aminotransferase (ALT/SGPT) 22 U/L (12-78) Alkaline Phosphatase 90 U/L (46-116) Total Protein 6.6 G/DL (6.4-8.2) Albumin 3.2 G/DL (3.4-5.0) L Vitamin B12 Level 344 PG/ML (193-986) Folate 12.6 NG/ML (8.6-58.9) Plan Problems: (1) Hemorrhoid prolapse Assessment & Plan: See below (2) Rectal prolapse Assessment & Plan: 69-year-old male abnormal rectal perirectal lesion thought to be potential rectal prolapse. On further evaluation this is a thrombosed hemorrhoid. Currently soft nontender mobile patient having normal bowel movements good rectal function examination proceeded without significant discomfort. Likely low bit more chronic than anticipated or noticed. No acute surgical intervention indicated recommended at this time recommend local care with hemorrhoid cream as needed. Okay for diet bowel regimen will monitor. Thank you for let me participate in patient's care stable comfortable walking around no complaints d/c planning Manny Wang Mar 08, 2020 15:00
[2020-03-08 16:02] VITALS: BP 110/73
[2020-03-08] MEDS: Tamsulosin 0.4mg cap ORAL SCH (21:00)
[2020-03-09] VITALS: BP 115/70
[2020-03-09 04:00] VITALS: BP 118/76
[2020-03-09 07:02] LABS: BASOPHILS % (AUTO) 0.9 % (0.0-2.0); EOSINOPHILS % (AUTO) 1.6 % (0.0-3.0); HEMATOCRIT 37.4 % (42.0-52.0); LYMPHOCYTES % (AUTO) 17.1 % (20.0-45.0); MEAN CORPUSCULAR VOLUME 103 FL (80-99); MONOCYTES % (AUTO) 6.9 % (1.0-10.0); NEUTROPHILS % (AUTO) 73.5 % (45.0-75.0); PLATELET COUNT 169 K/UL (150-450); RED BLOOD COUNT 3.63 M/UL (4.70-6.10); RED CELL DISTRIBUTION WIDTH 11.3 % (11.6-14.8); WHITE BLOOD COUNT 7.8 K/UL (4.8-10.8)
[2020-03-09 07:29] LABS: ANION GAP 8 mmol/L (5-15); BLOOD UREA NITROGEN 19 mg/dL (7-18); CALCIUM 8.4 MG/DL (8.5-10.1); CARBON DIOXIDE 29 MMOL/L (21-32); CHLORIDE 100 MMOL/L (98-107); CREATININE 1.7 MG/DL (0.55-1.30); SODIUM 137 MMOL/L (136-145)
[2020-03-09 08:00] VITALS: BP 122/76
[2020-03-09] MEDS: PARoxetine HCL 20mg tab ORAL SCH (08:29)
[2020-03-09] MEDS: Heparin 5000 units/ml inj SUBQ SCH ×2 (08:30→20:08)
--- NOTE | 2020-03-09 08:31 | Progress Note ---
DATE: 03/08/2020 SUBJECTIVE: This is a 69-year-old male with rectal prolapse. He is confused, disorganized. He has got altered mental status, decline in cognition below baseline, that is why his attending has requested daily psychiatric consultation. MENTAL STATUS EXAMINATION: This is a 69-year-old male. His appearance is disheveled. Attitude, irritable and agitated. Affect, guarded and restricted. Intellect poor. Mood, depressed and anxious. Motor activity, psychomotor agitation. Attention span is poor. Orientation x2. Speech is pressured. Thought process, disorganized and illogical. Insight and judgment is poor. DIAGNOSIS: Paranoid schizophrenia, rule out major depression, . PLAN: . A 20-minutes of cognitive behavioral therapy to help him identify his automatic negative thoughts and help him convert his negative thoughts to more positive thoughts to reduce depression, anxiety, and mood lability. Chart reviewed and discussed with staff. Seen and assessed at bedside. Yolis Cee M.D. DR: Jose JOB#: [id number] CC:
--- NOTE | 2020-03-09 09:28 | Nephrology Progress Note ---
Assessment/Plan Problem List: (1) Renal insufficiency (2) Hemorrhoid prolapse (3) HTN (hypertension) (4) Anemia (5) UTI (urinary tract infection) Assessment Renal failure most likely chronic, may have an acute component superimposed. Evidence of UTI Anemia Hypothyroidism Hemorrhoid prolapse History of hypertension Schizophrenia Plan Avoid nephrotoxic's Kidney ultrasound and chest x-ray ordered, results pending Keep the blood pressure in check Anemia work-up Continue per psych management Keep hydrated Flomax at bedtime Monitor renal parameters. Subjective ROS Limited/Unobtainable: No Objective Objective Last 24 Hour Vital Signs Date Time Temp Pulse Resp B/P (MAP) Pulse Ox O2 Delivery O2 Flow Rate FiO2 03/09/20 09:00 Room Air 03/09/20 08:00 97.0 63 18 122/76 (91) 93 03/09/20 04:00 98.6 82 20 118/76 (90) 98 03/09/20 00:00 98.0 62 20 115/70 (85) 97 03/08/20 21:00 Room Air 03/08/20 16:02 98.1 52 18 110/73 (85) 95 03/08/20 11:59 98.0 63 16 135/92 (106) 94 Intake and Output 03/08/20 03/09/20 19:00 07:00 Intake Total 480 ml 750 ml Balance 480 ml 750 ml Intake Oral 480 ml 750 ml # Voids 2 3 Laboratory Tests 03/09/20 05:30: White Blood Count 7.8#, Red Blood Count 3.63L, Hemoglobin 12.0L, Hematocrit 37.4L, Mean Corpuscular Volume 103H, Mean Corpuscular Hemoglobin 33.0H, Mean Corpuscular Hemoglobin Concent 32.0, Red Cell Distribution Width 11.3L, Platelet Count 169, Mean Platelet Volume 8.0, Neutrophils (%) (Auto) 73.5, Lymphocytes (%) (Auto) 17.1L, Monocytes (%) (Auto) 6.9, Eosinophils (%) (Auto) 1.6, Basophils (%) (Auto) 0.9, Sodium Level 137, Potassium Level 4.0, Chloride Level 100, Carbon Dioxide Level 29, Anion Gap 8, Blood Urea Nitrogen 19H, Creatinine 1.7H, Estimat Glomerular Filtration Rate 40.0, Glucose Level 120H, Calcium Level 8.4L Height (Feet): 5 Height (Inches): 8.00 Weight (Pounds): 150 General Appearance: no apparent distress, other - Uncooperative Cardiovascular: normal rate Respiratory/Chest: decreased breath sounds Abdomen: soft Clay Ruggiero MD Mar 09, 2020 09:28
[2020-03-09] MEDS: Vitamin D 1000 IU Tab ORAL SCH (09:42)
--- NOTE | 2020-03-09 09:45 | Progress Note ---
DATE: 03/09/2020 SUBJECTIVE: This is a 69-year-old male with rectal prolapse. He is confused and disorganized. His mood labile. He has got no logical plan for his own self-care. That is why he does require acute psychiatric inpatient treatment at this time. He has got feelings of helplessness, hopelessness, low energy, poor appetite, and loss of interest in activity. He does have some mood lability. He has got rectal prolapse causing him to have altered mental status and decline in cognition below his baseline. MENTAL STATUS EXAMINATION: This is a 69-year-old male. Appearance is disheveled. Attitude, irritable and agitated. Affect, guarded and restricted. Intellect, poor. Mood, depressed and anxious. Motor activity, psychomotor agitation. Attention span is poor. Orientation x2. Speech is low volume and slurred. Thought process, disorganized and illogical. Insight and judgment is poor. DIAGNOSIS: Major depressive disorder, mild, recurrent with psychotic features, rule out dementia with psychosis. PLAN: Continue titrating up on his psychotropic medications. A 20 minutes of cognitive behavioral therapy to help him identify his automatic thoughts and convert those negative thoughts to more positive thoughts to reduce depression, anxiety, and mood lability. Chart reviewed. Discussed with staff. Seen and assessed at bedside. Yolis Cee M.D. DR: HENOK JOB#: [id number] CC:
--- NOTE | 2020-03-09 10:32 | Diagnostic Imaging Report ---
EXAM: ULTRASOUND US Renal Comp CLINICAL HISTORY: Abdominal pain. COMPARISON: None TECHNIQUE: Ultrasound examination of the kidney includes grayscale images, and color and spectral doppler analysis. FINDINGS: The right kidney measures 12.1 x 5.4 x 6.7 cm and the left kidney measures 12.8 x 7.2 x 6.6 cm. Both kidneys are diffusely echogenic likely reflecting medical renal disease. There are multiple bilateral renal cysts. Approximately 7 mm intrarenal stone noted in the upper to midportion of the right kidney. There is mild fullness of the right renal collecting system on prevoid images which improved on postvoid images. On the left side, there is moderate to severe hydronephrosis. Large shadowing stone at the lower pole perhaps a staghorn calculus. Prostate is not enlarged. There is a possible TURP defect noted. Urinary bladder is distended but appears trabeculated. Small bladder diverticulum noted. IMPRESSION: BILATERAL ECHOGENIC KIDNEYS WITH CYSTIC CHANGES. MILD RIGHT HYDRONEPHROSIS WHICH IMPROVED AFTER VOIDING. SMALL RIGHT INTRARENAL STONE. MODERATE TO SEVERE LEFT HYDRONEPHROSIS. LARGE SHADOWING CALCIFICATION LOWER POLE LEFT KIDNEY PERHAPS A STAGHORN CALCULUS. TRABECULATED URINARY BLADDER WITH A SMALL DIVERTICULUM.
--- NOTE | 2020-03-09 10:42 | General Progress Note ---
Assessment/Plan Problem List: (1) HTN (hypertension) ICD Codes: I10 - Essential (primary) hypertension SNOMED: 15483800 (2) Psychiatric disorder ICD Codes: F99 - Mental disorder, not otherwise specified SNOMED: 30039300 (3) Renal insufficiency ICD Codes: N28.9 - Disorder of kidney and ureter, unspecified SNOMED: 717662787, 513364024 (4) Rectal prolapse ICD Codes: K62.3 - Rectal prolapse SNOMED: 83731140 Status: unchanged Assessment/Plan: pt diet sx f/u cbc bmp am Subjective Constitutional: Reports: weakness Allergies: Coded Allergies: No Known Allergies (Unverified , 03/06/20) All Systems: reviewed and negative except above Subjective sl confused in room Objective Last 24 Hour Vital Signs Date Time Temp Pulse Resp B/P (MAP) Pulse Ox O2 Delivery O2 Flow Rate FiO2 03/09/20 09:00 Room Air 03/09/20 08:00 97.0 63 18 122/76 (91) 93 03/09/20 04:00 98.6 82 20 118/76 (90) 98 03/09/20 00:00 98.0 62 20 115/70 (85) 97 03/08/20 21:00 Room Air 03/08/20 16:02 98.1 52 18 110/73 (85) 95 03/08/20 11:59 98.0 63 16 135/92 (106) 94 Intake and Output 03/08/20 03/09/20 19:00 07:00 Intake Total 480 ml 750 ml Balance 480 ml 750 ml Intake Oral 480 ml 750 ml # Voids 2 3 Laboratory Tests 03/09/20 05:30: White Blood Count 7.8#, Red Blood Count 3.63L, Hemoglobin 12.0L, Hematocrit 37.4L, Mean Corpuscular Volume 103H, Mean Corpuscular Hemoglobin 33.0H, Mean Corpuscular Hemoglobin Concent 32.0, Red Cell Distribution Width 11.3L, Platelet Count 169, Mean Platelet Volume 8.0, Neutrophils (%) (Auto) 73.5, Lymphocytes (%) (Auto) 17.1L, Monocytes (%) (Auto) 6.9, Eosinophils (%) (Auto) 1.6, Basophils (%) (Auto) 0.9, Sodium Level 137, Potassium Level 4.0, Chloride Level 100, Carbon Dioxide Level 29, Anion Gap 8, Blood Urea Nitrogen 19H, Creatinine 1.7H, Estimat Glomerular Filtration Rate 40.0, Glucose Level 120H, Calcium Level 8.4L Height (Feet): 5 Height (Inches): 8.00 Weight (Pounds): 150 General Appearance: lethargic, confused EENT: normal ENT inspection Neck: normal alignment Cardiovascular: normal peripheral pulses, normal rate, regular rhythm Respiratory/Chest: chest wall non-tender, lungs clear, normal breath sounds Abdomen: normal bowel sounds, non tender, soft Extremities: normal inspection Edema: no edema noted Arm (L), no edema noted Arm (R), no edema noted Leg (L), no edema noted Leg (R), no edema noted Pedal (L), no edema noted Pedal (R), no edema noted Generalized Neurologic: motor weakness Skin: normal pigmentation, warm/dry Rene Smith DO Mar 09, 2020 10:41
--- NOTE | 2020-03-09 11:16 | Diagnostic Imaging Report ---
Procedure: XRAY Chest 1v Reason for study: Reason For Exam: COUGH Comparison films: None. FINDINGS: A single one view chest is obtained. Vascularity is normal. Emphysematous changes noted in the upper lungs right greater than left. There is crowding of markings in the lung bases with possible underlying interstitial lung disease. No definite acute infiltrate noted. Cardiac and mediastinal silhouette are within normal limits. No effusion seen. The bony thorax appear unremarkable. IMPRESSION: Bilateral upper lobe emphysematous changes right greater than left. Crowding of markings in the lung bases and possible underlying interstitial disease. No definite acute alveolar infiltrate.
[2020-03-09 12:00] VITALS: BP 109/71
--- NOTE | 2020-03-09 14:08 | Cardiac Electrophysiology PN ---
Assessment/Plan Assessment/Plan 1. Hypertension. On p.r.n. clonidine 2. Rectal prolapse.Actually its hemorrhoid per Dr Wang. No surgery scheduled. EKG RBBB and LAFB and echocardiogram Nl EF 3. History of schizophrenia. DW RN Subjective Subjective Alert in NAD. No CP or SOB. Off tele. Still has rectal bleeding Objective Last 24 Hour Vital Signs Date Time Temp Pulse Resp B/P (MAP) Pulse Ox O2 Delivery O2 Flow Rate FiO2 03/09/20 12:00 97.8 63 18 109/71 (84) 96 03/09/20 09:00 Room Air 03/09/20 08:00 97.0 63 18 122/76 (91) 93 03/09/20 04:00 98.6 82 20 118/76 (90) 98 03/09/20 00:00 98.0 62 20 115/70 (85) 97 03/08/20 21:00 Room Air 03/08/20 16:02 98.1 52 18 110/73 (85) 95 Intake and Output 03/08/20 03/09/20 19:00 07:00 Intake Total 480 ml 750 ml Balance 480 ml 750 ml Intake Oral 480 ml 750 ml # Voids 2 3 Laboratory Tests Test 03/09/20 05:30 White Blood Count 7.8 K/UL (4.8-10.8) # Red Blood Count 3.63 M/UL (4.70-6.10) L Hemoglobin 12.0 G/DL (14.2-18.0) L Hematocrit 37.4 % (42.0-52.0) L Mean Corpuscular Volume 103 FL (80-99) H Mean Corpuscular Hemoglobin 33.0 PG (27.0-31.0) H Mean Corpuscular Hemoglobin Concent 32.0 G/DL (32.0-36.0) Red Cell Distribution Width 11.3 % (11.6-14.8) L Platelet Count 169 K/UL (150-450) Mean Platelet Volume 8.0 FL (6.5-10.1) Neutrophils (%) (Auto) 73.5 % (45.0-75.0) Lymphocytes (%) (Auto) 17.1 % (20.0-45.0) L Monocytes (%) (Auto) 6.9 % (1.0-10.0) Eosinophils (%) (Auto) 1.6 % (0.0-3.0) Basophils (%) (Auto) 0.9 % (0.0-2.0) Sodium Level 137 MMOL/L (136-145) Potassium Level 4.0 MMOL/L (3.5-5.1) Chloride Level 100 MMOL/L (98-107) Carbon Dioxide Level 29 MMOL/L (21-32) Anion Gap 8 mmol/L (5-15) Blood Urea Nitrogen 19 mg/dL (7-18) H Creatinine 1.7 MG/DL (0.55-1.30) H Estimat Glomerular Filtration Rate 40.0 mL/min (>60) Glucose Level 120 MG/DL (74-106) H Calcium Level 8.4 MG/DL (8.5-10.1) L Objective HEAD AND NECK: No JVD. LUNGS: Clear. CARDIOVASCULAR: Regular S1 and S2 with no gallop or murmur. ABDOMEN: Soft. EXTREMITIES: No pitting edema. Sheng Martin MD Mar 09, 2020 14:08
[2020-03-09 16:00] VITALS: BP 111/60
[2020-03-09 19:54] VITALS: BP 130/80
[2020-03-09] MEDS: Tamsulosin 0.4mg cap ORAL SCH (20:06)
--- NOTE | 2020-03-09 21:34 | Surgery Progress Note ---
Surgery Progress Note Subjective Symptoms: improved, pain absent, tolerating diet, voiding well, passing flatus , BM Objective Last 24 Hour Vital Signs Date Time Temp Pulse Resp B/P (MAP) Pulse Ox O2 Delivery O2 Flow Rate FiO2 03/09/20 20:33 Room Air 03/09/20 19:54 97.2 56 20 130/80 (97) 94 03/09/20 16:00 98.0 54 18 111/60 (77) 94 03/09/20 12:00 97.8 63 18 109/71 (84) 96 03/09/20 09:00 Room Air 03/09/20 08:00 97.0 63 18 122/76 (91) 93 03/09/20 04:00 98.6 82 20 118/76 (90) 98 03/09/20 00:00 98.0 62 20 115/70 (85) 97 I&O Intake and Output 03/08/20 03/09/20 19:00 07:00 Intake Total 480 ml 750 ml Balance 480 ml 750 ml Intake Oral 480 ml 750 ml # Voids 2 3 Cardiovascular: RSR Respiratory: clear Abdomen: soft, flat, non-tender, present bowel sounds Extremities: no edema, no tenderness, no cyanosis Laboratory Tests Test 03/09/20 05:30 White Blood Count 7.8 K/UL (4.8-10.8) # Red Blood Count 3.63 M/UL (4.70-6.10) L Hemoglobin 12.0 G/DL (14.2-18.0) L Hematocrit 37.4 % (42.0-52.0) L Mean Corpuscular Volume 103 FL (80-99) H Mean Corpuscular Hemoglobin 33.0 PG (27.0-31.0) H Mean Corpuscular Hemoglobin Concent 32.0 G/DL (32.0-36.0) Red Cell Distribution Width 11.3 % (11.6-14.8) L Platelet Count 169 K/UL (150-450) Mean Platelet Volume 8.0 FL (6.5-10.1) Neutrophils (%) (Auto) 73.5 % (45.0-75.0) Lymphocytes (%) (Auto) 17.1 % (20.0-45.0) L Monocytes (%) (Auto) 6.9 % (1.0-10.0) Eosinophils (%) (Auto) 1.6 % (0.0-3.0) Basophils (%) (Auto) 0.9 % (0.0-2.0) Sodium Level 137 MMOL/L (136-145) Potassium Level 4.0 MMOL/L (3.5-5.1) Chloride Level 100 MMOL/L (98-107) Carbon Dioxide Level 29 MMOL/L (21-32) Anion Gap 8 mmol/L (5-15) Blood Urea Nitrogen 19 mg/dL (7-18) H Creatinine 1.7 MG/DL (0.55-1.30) H Estimat Glomerular Filtration Rate 40.0 mL/min (>60) Glucose Level 120 MG/DL (74-106) H Calcium Level 8.4 MG/DL (8.5-10.1) L Plan Problems: (1) Hemorrhoid prolapse Assessment & Plan: See below (2) Rectal prolapse Assessment & Plan: 69-year-old male abnormal rectal perirectal lesion thought to be potential rectal prolapse. On further evaluation this is a thrombosed hemorrhoid. Currently soft nontender mobile patient having normal bowel movements good rectal function examination proceeded without significant discomfort. Likely low bit more chronic than anticipated or noticed. No acute surgical intervention indicated recommended at this time recommend local care with hemorrhoid cream as needed. Okay for diet bowel regimen will monitor. Thank you for let me participate in patient's care stable comfortable walking around no complaints d/c planning pending d/c Manny Wang Mar 09, 2020 21:34
[2020-03-10] VITALS: BP_SYST 108; BP_SYST 126; BP_DIAS 50; BP_DIAS 70
[2020-03-10 04:00] VITALS: BP 115/79
[2020-03-10] MEDS: LORazepam 1mg tab ORAL PRN (05:11)
[2020-03-10 06:47] LABS: BASOPHILS % (AUTO) 1.1 % (0.0-2.0); EOSINOPHILS % (AUTO) 2.9 % (0.0-3.0); HEMATOCRIT 37.3 % (42.0-52.0); HEMOGLOBIN 11.8 G/DL (14.2-18.0); LYMPHOCYTES % (AUTO) 29.3 % (20.0-45.0); MEAN CORPUSCULAR VOLUME 103 FL (80-99); MONOCYTES % (AUTO) 8.3 % (1.0-10.0); NEUTROPHILS % (AUTO) 58.3 % (45.0-75.0); PLATELET COUNT 152 K/UL (150-450); RED BLOOD COUNT 3.61 M/UL (4.70-6.10); RED CELL DISTRIBUTION WIDTH 11.2 % (11.6-14.8); WHITE BLOOD COUNT 5.4 K/UL (4.8-10.8)
[2020-03-10 07:16] LABS: ALANINE AMINOTRANSFERASE 21 U/L (12-78); ALBUMIN 2.8 G/DL (3.4-5.0); ALBUMIN/GLOBULIN RATIO 0.8 (1.0-2.7); ALKALINE PHOSPHATASE 81 U/L (46-116); ANION GAP 6 mmol/L (5-15); ASPARTATE AMINO TRANSFERASE 26 U/L (15-37); BILIRUBIN,TOTAL 0.2 MG/DL (0.2-1.0); BLOOD UREA NITROGEN 17 mg/dL (7-18); CARBON DIOXIDE 29 MMOL/L (21-32); CHLORIDE 105 MMOL/L (98-107); CREATININE 1.9 MG/DL (0.55-1.30); POTASSIUM 4.1 MMOL/L (3.5-5.1); SODIUM 140 MMOL/L (136-145)
[2020-03-10 08:00] VITALS: BP 106/72
[2020-03-10] MEDS: Vitamin D 1000 IU Tab ORAL SCH (08:52)
[2020-03-10] MEDS: Heparin 5000 units/ml inj SUBQ SCH ×2 (08:52→20:32)
[2020-03-10] MEDS: PARoxetine HCL 20mg tab ORAL SCH (08:53)
--- NOTE | 2020-03-10 10:19 | Nephrology Progress Note ---
Assessment/Plan Problem List: (1) Renal insufficiency Assessment: Most likely chronic (2) Hemorrhoid prolapse (3) HTN (hypertension) (4) Anemia (5) UTI (urinary tract infection) Assessment Renal failure most likely chronic, may have an acute component superimposed. Evidence of UTI Anemia Hypothyroidism Hemorrhoid prolapse History of hypertension Schizophrenia Plan Avoid nephrotoxic: Kidney ultrasound and chest x-ray ordered, results pending Keep the blood pressure in check Anemia work-up Continue per psych management Keep hydrated Flomax at bedtime Monitor renal parameters. Kidney ultrasound: BILATERAL ECHOGENIC KIDNEYS WITH CYSTIC CHANGES. MILD RIGHT HYDRONEPHROSIS WHICH IMPROVED AFTER VOIDING. SMALL RIGHT INTRARENAL STONE. MODERATE TO SEVERE LEFT HYDRONEPHROSIS. LARGE SHADOWING CALCIFICATION LOWER POLE LEFT KIDNEY PERHAPS A STAGHORN CALCULUS. TRABECULATED URINARY BLADDER WITH A SMALL DIVERTICULUM. Subjective ROS Limited/Unobtainable: No Constitutional: Reports: malaise Objective Objective Last 24 Hour Vital Signs Date Time Temp Pulse Resp B/P (MAP) Pulse Ox O2 Delivery O2 Flow Rate FiO2 03/10/20 09:00 Room Air 03/10/20 08:00 97.8 64 19 106/72 (83) 96 03/10/20 04:00 97.4 63 20 115/79 (91) 95 03/10/20 00:00 98.2 57 18 108/70 (83) 92 03/09/20 20:33 Room Air 03/09/20 19:54 97.2 56 20 130/80 (97) 94 03/09/20 16:00 98.0 54 18 111/60 (77) 94 03/09/20 12:00 97.8 63 18 109/71 (84) 96 Intake and Output 03/09/20 03/10/20 19:00 07:00 Intake Total 472 ml 1062 ml Balance 472 ml 1062 ml Intake Oral 472 ml 1062 ml # Voids 5 Laboratory Tests 03/10/20 06:15: White Blood Count 5.4, Red Blood Count 3.61L, Hemoglobin 11.8L, Hematocrit 37.3L , Mean Corpuscular Volume 103H, Mean Corpuscular Hemoglobin 32.7H, Mean Corpuscular Hemoglobin Concent 31.7L, Red Cell Distribution Width 11.2L, Platelet Count 152, Mean Platelet Volume 7.4, Neutrophils (%) (Auto) 58.3, Lymphocytes (%) (Auto) 29.3, Monocytes (%) (Auto) 8.3, Eosinophils (%) (Auto) 2.9, Basophils (%) (Auto) 1.1, Sodium Level 140, Potassium Level 4.1, Chloride Level 105, Carbon Dioxide Level 29, Anion Gap 6, Blood Urea Nitrogen 17, Creatinine 1.9H, Estimat Glomerular Filtration Rate 35.2, Glucose Level 112H, Uric Acid 6.7, Calcium Level 8.0L, Total Bilirubin 0.2, Aspartate Amino Transf ( AST/SGOT) 26, Alanine Aminotransferase (ALT/SGPT) 21, Alkaline Phosphatase 81, Total Protein 6.4, Albumin 2.8L, Globulin 3.6, Albumin/Globulin Ratio 0.8L Height (Feet): 5 Height (Inches): 8.00 Weight (Pounds): 150 General Appearance: no apparent distress Cardiovascular: normal rate Abdomen: soft Clay Ruggiero MD Mar 10, 2020 10:19
--- NOTE | 2020-03-10 10:40 | Cardiac Electrophysiology PN ---
Assessment/Plan Assessment/Plan 1. Hypertension. On p.r.n. clonidine 2. Hemorrhoid per Dr Wang. No surgery scheduled. EKG RBBB and LAFB and echocardiogram Nl EF 3. History of schizophrenia. 4. MODERATE TO SEVERE LEFT HYDRONEPHROSIS. LARGE SHADOWING CALCIFICATION LOWER POLE LEFT KIDNEY PERHAPS A STAGHORN CALCULUS. FU DR Khanh RUDD RN and Dr. Ruggiero Subjective Subjective Alert in NAD. No CP or SOB. Urology consult pending Objective Last 24 Hour Vital Signs Date Time Temp Pulse Resp B/P (MAP) Pulse Ox O2 Delivery O2 Flow Rate FiO2 03/10/20 09:00 Room Air 03/10/20 08:00 97.8 64 19 106/72 (83) 96 03/10/20 04:00 97.4 63 20 115/79 (91) 95 03/10/20 00:00 98.2 57 18 108/70 (83) 92 03/09/20 20:33 Room Air 03/09/20 19:54 97.2 56 20 130/80 (97) 94 03/09/20 16:00 98.0 54 18 111/60 (77) 94 03/09/20 12:00 97.8 63 18 109/71 (84) 96 Intake and Output 03/09/20 03/10/20 19:00 07:00 Intake Total 472 ml 1062 ml Balance 472 ml 1062 ml Intake Oral 472 ml 1062 ml # Voids 5 Laboratory Tests Test 03/10/20 06:15 White Blood Count 5.4 K/UL (4.8-10.8) Red Blood Count 3.61 M/UL (4.70-6.10) L Hemoglobin 11.8 G/DL (14.2-18.0) L Hematocrit 37.3 % (42.0-52.0) L Mean Corpuscular Volume 103 FL (80-99) H Mean Corpuscular Hemoglobin 32.7 PG (27.0-31.0) H Mean Corpuscular Hemoglobin Concent 31.7 G/DL (32.0-36.0) L Red Cell Distribution Width 11.2 % (11.6-14.8) L Platelet Count 152 K/UL (150-450) Mean Platelet Volume 7.4 FL (6.5-10.1) Neutrophils (%) (Auto) 58.3 % (45.0-75.0) Lymphocytes (%) (Auto) 29.3 % (20.0-45.0) Monocytes (%) (Auto) 8.3 % (1.0-10.0) Eosinophils (%) (Auto) 2.9 % (0.0-3.0) Basophils (%) (Auto) 1.1 % (0.0-2.0) Sodium Level 140 MMOL/L (136-145) Potassium Level 4.1 MMOL/L (3.5-5.1) Chloride Level 105 MMOL/L (98-107) Carbon Dioxide Level 29 MMOL/L (21-32) Anion Gap 6 mmol/L (5-15) Blood Urea Nitrogen 17 mg/dL (7-18) Creatinine 1.9 MG/DL (0.55-1.30) H Estimat Glomerular Filtration Rate 35.2 mL/min (>60) Glucose Level 112 MG/DL (74-106) H Uric Acid 6.7 MG/DL (2.6-7.2) Calcium Level 8.0 MG/DL (8.5-10.1) L Total Bilirubin 0.2 MG/DL (0.2-1.0) Aspartate Amino Transf (AST/SGOT) 26 U/L (15-37) Alanine Aminotransferase (ALT/SGPT) 21 U/L (12-78) Alkaline Phosphatase 81 U/L (46-116) Total Protein 6.4 G/DL (6.4-8.2) Albumin 2.8 G/DL (3.4-5.0) L Globulin 3.6 g/dL Albumin/Globulin Ratio 0.8 (1.0-2.7) L Objective HEAD AND NECK: No JVD. LUNGS: Clear. CARDIOVASCULAR: Regular S1 and S2 with no gallop or murmur. ABDOMEN: Soft. EXTREMITIES: No pitting edema. Sheng Martin MD Mar 10, 2020 10:40
[2020-03-10 12:00] VITALS: BP 103/69
--- NOTE | 2020-03-10 13:10 | General Progress Note ---
Assessment/Plan Problem List: (1) HTN (hypertension) ICD Codes: I10 - Essential (primary) hypertension SNOMED: 05360912 (2) Psychiatric disorder ICD Codes: F99 - Mental disorder, not otherwise specified SNOMED: 81772311 (3) Renal insufficiency ICD Codes: N28.9 - Disorder of kidney and ureter, unspecified SNOMED: 245720671, 468653054 (4) Rectal prolapse ICD Codes: K62.3 - Rectal prolapse SNOMED: 54053967 (5) Kidney stone ICD Codes: N20.0 - Calculus of kidney SNOMED: 46276054 (6) Hydronephrosis ICD Codes: N13.30 - Unspecified hydronephrosis SNOMED: 38868596 Status: unchanged Assessment/Plan: pt diet sx f/u uro neph cbc bmp am Subjective Constitutional: Reports: weakness Allergies: Coded Allergies: No Known Allergies (Unverified , 03/06/20) All Systems: reviewed and negative except above Subjective sl confused in room Objective Last 24 Hour Vital Signs Date Time Temp Pulse Resp B/P (MAP) Pulse Ox O2 Delivery O2 Flow Rate FiO2 03/10/20 12:00 97.6 61 18 103/69 (80) 95 03/10/20 09:00 Room Air 03/10/20 08:00 97.8 64 19 106/72 (83) 96 03/10/20 04:00 97.4 63 20 115/79 (91) 95 03/10/20 00:00 98.2 57 18 108/70 (83) 92 03/09/20 20:33 Room Air 03/09/20 19:54 97.2 56 20 130/80 (97) 94 03/09/20 16:00 98.0 54 18 111/60 (77) 94 Intake and Output 03/09/20 03/10/20 18:59 06:59 Intake Total 472 ml 1062 ml Balance 472 ml 1062 ml Intake Oral 472 ml 1062 ml # Voids 5 Laboratory Tests 03/10/20 06:15: White Blood Count 5.4, Red Blood Count 3.61L, Hemoglobin 11.8L, Hematocrit 37.3L , Mean Corpuscular Volume 103H, Mean Corpuscular Hemoglobin 32.7H, Mean Corpuscular Hemoglobin Concent 31.7L, Red Cell Distribution Width 11.2L, Platelet Count 152, Mean Platelet Volume 7.4, Neutrophils (%) (Auto) 58.3, Lymphocytes (%) (Auto) 29.3, Monocytes (%) (Auto) 8.3, Eosinophils (%) (Auto) 2.9, Basophils (%) (Auto) 1.1, Sodium Level 140, Potassium Level 4.1, Chloride Level 105, Carbon Dioxide Level 29, Anion Gap 6, Blood Urea Nitrogen 17, Creatinine 1.9H, Estimat Glomerular Filtration Rate 35.2, Glucose Level 112H, Uric Acid 6.7, Calcium Level 8.0L, Total Bilirubin 0.2, Aspartate Amino Transf ( AST/SGOT) 26, Alanine Aminotransferase (ALT/SGPT) 21, Alkaline Phosphatase 81, Total Protein 6.4, Albumin 2.8L, Globulin 3.6, Albumin/Globulin Ratio 0.8L Height (Feet): 5 Height (Inches): 8.00 Weight (Pounds): 150 General Appearance: lethargic EENT: normal ENT inspection Neck: normal alignment Cardiovascular: normal peripheral pulses, normal rate, regular rhythm Respiratory/Chest: chest wall non-tender, lungs clear, normal breath sounds Abdomen: normal bowel sounds, non tender, soft Extremities: normal inspection Edema: no edema noted Arm (L), no edema noted Arm (R), no edema noted Leg (L), no edema noted Leg (R), no edema noted Pedal (L), no edema noted Pedal (R), no edema noted Generalized Neurologic: motor weakness Skin: normal pigmentation, warm/dry Rene Smith DO Mar 10, 2020 13:10
[2020-03-10 16:00] VITALS: BP 134/76
--- NOTE | 2020-03-10 18:27 | Surgery Progress Note ---
Surgery Progress Note Subjective Symptoms: improved, tolerating diet, voiding well Additional Comments Psychologically impaired Throwing his food around Clinically improved Hemorrhoid stable Objective Last 24 Hour Vital Signs Date Time Temp Pulse Resp B/P (MAP) Pulse Ox O2 Delivery O2 Flow Rate FiO2 03/10/20 16:00 97.7 59 18 134/76 (95) 95 03/10/20 12:00 97.6 61 18 103/69 (80) 95 03/10/20 09:00 Room Air 03/10/20 08:00 97.8 64 19 106/72 (83) 96 03/10/20 04:00 97.4 63 20 115/79 (91) 95 03/10/20 00:00 98.2 57 18 108/70 (83) 92 03/09/20 20:33 Room Air 03/09/20 19:54 97.2 56 20 130/80 (97) 94 I&O Intake and Output 03/09/20 03/10/20 19:00 07:00 Intake Total 472 ml 1062 ml Balance 472 ml 1062 ml Intake Oral 472 ml 1062 ml # Voids 5 Cardiovascular: RSR Respiratory: clear Abdomen: soft, non-tender, present bowel sounds Extremities: no edema, no tenderness, no cyanosis Laboratory Tests Test 03/10/20 06:15 White Blood Count 5.4 K/UL (4.8-10.8) Red Blood Count 3.61 M/UL (4.70-6.10) L Hemoglobin 11.8 G/DL (14.2-18.0) L Hematocrit 37.3 % (42.0-52.0) L Mean Corpuscular Volume 103 FL (80-99) H Mean Corpuscular Hemoglobin 32.7 PG (27.0-31.0) H Mean Corpuscular Hemoglobin Concent 31.7 G/DL (32.0-36.0) L Red Cell Distribution Width 11.2 % (11.6-14.8) L Platelet Count 152 K/UL (150-450) Mean Platelet Volume 7.4 FL (6.5-10.1) Neutrophils (%) (Auto) 58.3 % (45.0-75.0) Lymphocytes (%) (Auto) 29.3 % (20.0-45.0) Monocytes (%) (Auto) 8.3 % (1.0-10.0) Eosinophils (%) (Auto) 2.9 % (0.0-3.0) Basophils (%) (Auto) 1.1 % (0.0-2.0) Sodium Level 140 MMOL/L (136-145) Potassium Level 4.1 MMOL/L (3.5-5.1) Chloride Level 105 MMOL/L (98-107) Carbon Dioxide Level 29 MMOL/L (21-32) Anion Gap 6 mmol/L (5-15) Blood Urea Nitrogen 17 mg/dL (7-18) Creatinine 1.9 MG/DL (0.55-1.30) H Estimat Glomerular Filtration Rate 35.2 mL/min (>60) Glucose Level 112 MG/DL (74-106) H Uric Acid 6.7 MG/DL (2.6-7.2) Calcium Level 8.0 MG/DL (8.5-10.1) L Total Bilirubin 0.2 MG/DL (0.2-1.0) Aspartate Amino Transf (AST/SGOT) 26 U/L (15-37) Alanine Aminotransferase (ALT/SGPT) 21 U/L (12-78) Alkaline Phosphatase 81 U/L (46-116) Total Protein 6.4 G/DL (6.4-8.2) Albumin 2.8 G/DL (3.4-5.0) L Globulin 3.6 g/dL Albumin/Globulin Ratio 0.8 (1.0-2.7) L Plan Problems: (1) Hemorrhoid prolapse Assessment & Plan: See below (2) Rectal prolapse Assessment & Plan: 69-year-old male abnormal rectal perirectal lesion thought to be potential rectal prolapse. On further evaluation this is a thrombosed hemorrhoid. Currently soft nontender mobile patient having normal bowel movements good rectal function examination proceeded without significant discomfort. Likely low bit more chronic than anticipated or noticed. No acute surgical intervention indicated recommended at this time recommend local care with hemorrhoid cream as needed. Okay for diet bowel regimen will monitor. Thank you for let me participate in patient's care stable comfortable walking around no complaints d/c planning pending d/c Manny Wang Mar 10, 2020 18:27
--- NOTE | 2020-03-10 19:00 | Progress Note ---
DATE: 03/10/2020 SUBJECTIVE: This is a 69-year-old male patient. The patient continues to have rectal prolapse. He also has other medical problems such as hemorrhoids altered mental status, confusion, and decline in cognition below his baseline. That is why his attending has requested daily psychiatric consultation. MENTAL STATUS EXAMINATION: This is a 69-year-old male. Appearance is disheveled. Attitude, irritable and guarded. Affect, guarded and restricted. Intellect, poor. Mood, depressed and anxious. Motor activity, psychomotor agitation. Attention span is poor. Orientation x2. Speech is pressured. Thought process, disorganized and illogical. Insight and judgment is poor. DIAGNOSIS: Paranoid schizophrenia, acute exacerbation. PLAN: Treat the patient with Seroquel at a dose of 100 mg at bedtime, Paxil 20 mg daily, Ativan 1 mg every six hours p.r.n. anxiety or agitation. 20 minutes of cognitive behavioral therapy to help him identify his automatic negative thoughts and help convert those negative thoughts to more positive thoughts to reduce depression, anxiety, and mood lability. Chart reviewed. Discussed with staff. Seen and assessed in his room. Yolis Cee M.D. DR: HENOK JOB#: [id number] CC:
[2020-03-10 20:00] VITALS: BP 135/89
[2020-03-10] MEDS: Tamsulosin 0.4mg cap ORAL SCH (20:31)
--- NOTE | 2020-03-10 21:45 | Consultation ---
DATE OF CONSULTATION: 03/10/2020 UROLOGY CONSULTATION CONSULTING PHYSICIAN: Escobar Stark MD. ATTENDING/CONSULTING PHYSICIAN: Rene Smith DO. CHIEF COMPLAINT/HISTORY OF PRESENT ILLNESS: I was asked by Dr. Smith to evaluate this 69-year-old gentleman regarding history of possible kidney stones and hydronephrosis noted on ultrasound. Briefly, the patient was brought into the hospital from his nursing facility. He was noted to have a history of rectal prolapse and was brought in for evaluation of the same. During the course of his workup, an ultrasound revealed evidence of the stones and hydronephrosis as described above. Given the above, I was asked to evaluate the patient. PAST MEDICAL HISTORY: 1. Schizophrenia. 2. Hypertension. 3. Rectal prolapse. 4. Nonverbal status. PAST SURGICAL HISTORY: Unknown. MEDICATIONS: Please see the chart for current medications and administration details. ALLERGIES: No known drug allergies. SOCIAL HISTORY: Unremarkable for current tobacco, alcohol, or drug use. FAMILY HISTORY: Not available. REVIEW OF SYSTEMS: A 14-system review of systems unavailable as patient cannot cooperate with questioning. PHYSICAL EXAMINATION: GENERAL: The patient is an older gentleman awake, alert, oriented, in no obvious distress. HEENT: NC/AT. Neck is supple. Oropharynx clear. CHEST: Within normal limits. ABDOMEN: Soft, flat, nontender, nondistended. EXTREMITIES: Warm and well perfused. No cyanosis, clubbing, or edema. BACK: No CVA tenderness to percussion. GENITOURINARY: Circumcised male phallus. No discharge, lesions, or curvature. There are bilateral descended testes and cord structures. No masses or tenderness to palpation. LABORATORY DATA: White blood cell count 5.4, hematocrit 37.3, platelets 152. Sodium 140, potassium 4.1, chloride 105, bicarbonate 29, BUN 17, creatinine 1.9, glucose 112, calcium 8.0. LFTs within normal limits. PT 12.5, INR 1.1, PTT 23. Urinalysis specific gravity 1.005, pH 6.0. Dip test notable for 1+ blood and 3+ leukocyte esterase. Microanalysis 40 to 60 white and 2 to 4 red blood cells per high-power field and occasional bacteria. Urine culture, no growth. Rectal culture with VREF. Nasal culture with Staph aureus. DIAGNOSTIC IMAGING: Renal ultrasound with bilateral echogenic kidneys with cystic changes. There is mild right hydronephrosis improved after voiding. There was a small right intrarenal stone measuring 7 mm in size. There is moderate to severe left hydronephrosis. There is a large shadowing calcification in the lower pole left kidney, perhaps a staghorn stone. There was a trabeculated bladder with a small diverticulum. ASSESSMENT: The patient is a 69-year-old gentleman with history of rectal prolapse presenting for evaluation of same. He has schizophrenia and nonverbal status at baseline. Workup for abdominal pain revealed evidence of possible kidney stones and hydronephrosis on ultrasound. Laboratory data is notable for renal insufficiency. Urine cultures negative. Rectal cultures growing VREF and nasal culture has grown Staph. I will order a CT scan of the abdomen and pelvis to better assess the patient's and whether not there is ureteral obstruction. We will make plans for the patient based on the results. Thank you for allowing me to participate in the care of this unfortunate gentleman. Please do not hesitate to contact me for any questions that you may further have regarding his care. I will see him with you as needed. Escobar Stark M.D. DR: Mathew JOB#: [id number] CC:
[2020-03-11] VITALS: BP 126/80
[2020-03-11 04:00] VITALS: BP 140/86
[2020-03-11 06:23] LABS: BASOPHILS % (AUTO) 1.1 % (0.0-2.0); EOSINOPHILS % (AUTO) 4.4 % (0.0-3.0); HEMATOCRIT 34.6 % (42.0-52.0); HEMOGLOBIN 11.4 G/DL (14.2-18.0); MEAN CORPUSCULAR VOLUME 102 FL (80-99); MONOCYTES % (AUTO) 7.7 % (1.0-10.0); NEUTROPHILS % (AUTO) 54.8 % (45.0-75.0); PLATELET COUNT 149 K/UL (150-450); RED CELL DISTRIBUTION WIDTH 11.2 % (11.6-14.8); WHITE BLOOD COUNT 4.3 K/UL (4.8-10.8)
[2020-03-11 07:03] LABS: ANION GAP 6 mmol/L (5-15); BLOOD UREA NITROGEN 14 mg/dL (7-18); CALCIUM 8.5 MG/DL (8.5-10.1); CARBON DIOXIDE 31 MMOL/L (21-32); CHLORIDE 102 MMOL/L (98-107); CREATININE 1.8 MG/DL (0.55-1.30); POTASSIUM 4.7 MMOL/L (3.5-5.1); SODIUM 138 MMOL/L (136-145)
[2020-03-11 08:00] VITALS: BP_SYST 119; BP_SYST 142; BP_DIAS 74; BP_DIAS 81
[2020-03-11] MEDS: PARoxetine HCL 20mg tab ORAL SCH (08:40)
[2020-03-11] MEDS: Vitamin D 1000 IU Tab ORAL SCH (08:40)
[2020-03-11] MEDS: Heparin 5000 units/ml inj SUBQ SCH (08:41)
--- NOTE | 2020-03-11 09:03 | General Progress Note ---
Assessment/Plan Problem List: (1) HTN (hypertension) ICD Codes: I10 - Essential (primary) hypertension SNOMED: 20646475 (2) Psychiatric disorder ICD Codes: F99 - Mental disorder, not otherwise specified SNOMED: 48959984 (3) Renal insufficiency ICD Codes: N28.9 - Disorder of kidney and ureter, unspecified SNOMED: 017688789, 886661778 (4) Rectal prolapse ICD Codes: K62.3 - Rectal prolapse SNOMED: 30752157 (5) Kidney stone ICD Codes: N20.0 - Calculus of kidney SNOMED: 64394568 (6) Hydronephrosis ICD Codes: N13.30 - Unspecified hydronephrosis SNOMED: 32824183 Status: stable, progressing Assessment/Plan: pt diet sx f/u uro neph dc Subjective Constitutional: Reports: weakness Allergies: Coded Allergies: No Known Allergies (Unverified , 03/06/20) All Systems: reviewed and negative except above Subjective sl confused in room Objective Last 24 Hour Vital Signs Date Time Temp Pulse Resp B/P (MAP) Pulse Ox O2 Delivery O2 Flow Rate FiO2 03/11/20 08:00 97.8 62 19 119/81 (94) 97 03/11/20 04:00 97.9 65 18 140/86 (104) 97 03/11/20 00:00 97.8 60 18 126/80 (95) 98 03/10/20 21:01 Room Air 03/10/20 20:00 98.4 58 18 135/89 (104) 95 03/10/20 16:00 97.7 59 18 134/76 (95) 95 03/10/20 12:00 97.6 61 18 103/69 (80) 95 Intake and Output 03/10/20 03/11/20 19:00 07:00 Intake Total 720 ml Balance 720 ml Intake Oral 720 ml # Voids 5 Laboratory Tests 03/11/20 05:55: White Blood Count 4.3L, Red Blood Count 3.40L, Hemoglobin 11.4L, Hematocrit 34.6L, Mean Corpuscular Volume 102H, Mean Corpuscular Hemoglobin 33.4H, Mean Corpuscular Hemoglobin Concent 32.8, Red Cell Distribution Width 11.2L, Platelet Count 149L, Mean Platelet Volume 7.8, Neutrophils (%) (Auto) 54.8, Lymphocytes (%) (Auto) 32.0, Monocytes (%) (Auto) 7.7, Eosinophils (%) (Auto) 4.4H, Basophils (%) (Auto) 1.1, Sodium Level 138, Potassium Level 4.7, Chloride Level 102, Carbon Dioxide Level 31, Anion Gap 6, Blood Urea Nitrogen 14, Creatinine 1.8H, Estimat Glomerular Filtration Rate 37.5, Glucose Level 81, Calcium Level 8.5 Height (Feet): 5 Height (Inches): 8.00 Weight (Pounds): 150 General Appearance: lethargic, confused EENT: normal ENT inspection Neck: normal alignment Cardiovascular: normal peripheral pulses, normal rate, regular rhythm Respiratory/Chest: chest wall non-tender, lungs clear, normal breath sounds Abdomen: normal bowel sounds, non tender, soft Extremities: normal inspection Edema: no edema noted Arm (L), no edema noted Arm (R), no edema noted Leg (L), no edema noted Leg (R), no edema noted Pedal (L), no edema noted Pedal (R), no edema noted Generalized Neurologic: motor weakness Skin: normal pigmentation, warm/dry Rene Smith DO Mar 11, 2020 09:03
[2020-03-11] MEDS ORDERED: HEPARIN SO5000 UNIT2 SUBQ (11:07)
[2020-03-11] MEDS ORDERED: ANUSOL-HC30 GM RC (11:08)
[2020-03-11] MEDS ORDERED: ATIVAN1 MG ORAL (11:09)
[2020-03-11] MEDS ORDERED: SEROQUEL100 MG ORAL (11:11)
[2020-03-11] MEDS ORDERED: FLOMAX0.4 MG ORAL (11:13)
[2020-03-11] MEDS ORDERED: VITAMIN D325 MC2 PO (11:25)
[2020-03-11] MEDS ORDERED: CLONIDINE0.1 MG ORAL (11:27)
--- NOTE | 2020-03-11 11:40 | Diagnostic Imaging Report ---
EXAM: CT CT Abdomen Pelvis WO Contrast INDICATION: Abdominal pain. COMPARISON: Renal ultrasound 03/09/2020 TECHNIQUE: Axial images were obtained through the abdomen pelvis without intravenous contrast. Sagittal and coronal reformats are generated. All CT scans at this facility are performed using dose modulation techniques as appropriate to a performed exam including the following: automated exposure control with adjustment of the mA and/or kV according to patient size. RADIATION DOSE: CTDIvol: 3.2 mGy DLP: 172.7 mGy-cm Dose information generated by the CT scanner is available in PACS. FINDINGS: Extensive emphysematous changes noted in both lung bases. There is also mild fibrotic changes with early honeycombing posterior lateral right lung base and to a lesser extent in the left lung base. The liver and spleen are homogeneous. Gallbladder is absent. The pancreas is difficult to separate from adjacent nonopacified small bowel but grossly unremarkable. Adrenals are normal in morphology. The left kidney is atrophic and there is no hydronephrosis or large shadowing stone as suggested on prior ultrasound. Sonographic finding was likely artifactual secondary to volume averaging of adjacent fluid-filled bowel and bowel gas. There is no hydronephrosis of the right kidney. There is a moderate-sized hiatal hernia. Small bowel loops are nondistended increased stool lucencies noted throughout the colon. The appendix is not visualized. There is no free fluid or free air. No pathologic adenopathy demonstrated. Diffuse wall thickening of the urinary bladder noted. Please correlate clinically for underlying urinary tract infection. There is no suspicious superficial soft tissue or osseous abnormality. IMPRESSION: EMPHYSEMATOUS AND FIBROTIC CHANGES NOTED IN THE LUNG BASES. THE LEFT KIDNEY IS ATROPHIC BUT THERE IS NO HYDRONEPHROSIS OR LARGE SHADOWING STONE SUGGESTED ON PRIOR ULTRASOUND. SONOGRAPHIC FINDING WAS LIKELY ARTIFACTUAL SECONDARY TO VOLUME AVERAGING OF ADJACENT FLUID-FILLED BOWEL AND BOWEL GAS. HIATAL HERNIA. INCREASED STOOL LUCENCIES THROUGHOUT THE COLON. DIFFUSE WALL THICKENING OF THE URINARY BLADDER. PLEASE CORRELATE CLINICALLY FOR UNDERLYING URINARY TRACT INFECTION.
[2020-03-11 11:59] VITALS: BP 107/75
--- NOTE | 2020-03-11 12:00 | Progress Note ---
DATE: 03/11/2020 SUBJECTIVE: This is a 69-year-old male with rectal prolapse. He has altered mental status, confusion, and disorganized thought process. That is why attending has requested daily psychiatric consultation. MENTAL STATUS EXAMINATION: This is a 69-year-old male. Appearance is disheveled. Attitude, irritable and agitated. Affect, guarded and restricted. Intellect, poor. Mood, depressed and anxious. Motor activity, psychomotor agitation. Insight and judgment is poor. DIAGNOSIS: Major depressive disorder, mild, recurrent with psychotic features, rule out dementia with psychosis. PLAN: Continue titrating up on his medications to stabilize his mood. A 20 minutes of cognitive behavioral therapy to help him identify his automatic negative thoughts and help him convert his negative thoughts to more positive thoughts to reduce depression, anxiety, and mood lability. Chart reviewed. Discussed with staff. Seen and assessed in his room. Yolis Cee M.D. DR: HENOK JOB#: [id number] CC:
--- NOTE | 2020-03-11 12:25 | Cardiac Electrophysiology PN ---
Assessment/Plan Assessment/Plan 1. Hypertension. On p.r.n. clonidine 2. Hemorrhoid per Dr Wang. No surgery scheduled. EKG RBBB and LAFB and echocardiogram Nl EF 3. History of schizophrenia. 4. MODERATE TO SEVERE LEFT HYDRONEPHROSIS. LARGE SHADOWING CALCIFICATION LOWER POLE LEFT KIDNEY PERHAPS A STAGHORN CALCULUS. FU Dr. Em FU CT showed THERE IS NO HYDRONEPHROSIS OR LARGE SHADOWING STONE SUGGESTED ON PRIOR ULTRASOUND. SONOGRAPHIC FINDING WAS LIKELY ARTIFACTUAL SECONDARY TO VOLUME AVERAGING OF ADJACENT FLUID-FILLED BOWEL AND BOWEL GAS. BLAIRE RN and Dr. Ruggiero DC to [facility] today Subjective Subjective Alert in NAD. No CP or SOB. DC to [facility] pending today Objective Last 24 Hour Vital Signs Date Time Temp Pulse Resp B/P (MAP) Pulse Ox O2 Delivery O2 Flow Rate FiO2 03/11/20 11:59 98.2 63 19 107/75 (86) 97 03/11/20 09:00 Room Air 03/11/20 08:00 97.8 62 19 119/81 (94) 97 03/11/20 04:00 97.9 65 18 140/86 (104) 97 03/11/20 00:00 97.8 60 18 126/80 (95) 98 03/10/20 21:01 Room Air 03/10/20 20:00 98.4 58 18 135/89 (104) 95 03/10/20 16:00 97.7 59 18 134/76 (95) 95 Intake and Output 03/10/20 03/11/20 19:00 07:00 Intake Total 720 ml Balance 720 ml Intake Oral 720 ml # Voids 5 Laboratory Tests Test 03/11/20 05:55 White Blood Count 4.3 K/UL (4.8-10.8) L Red Blood Count 3.40 M/UL (4.70-6.10) L Hemoglobin 11.4 G/DL (14.2-18.0) L Hematocrit 34.6 % (42.0-52.0) L Mean Corpuscular Volume 102 FL (80-99) H Mean Corpuscular Hemoglobin 33.4 PG (27.0-31.0) H Mean Corpuscular Hemoglobin Concent 32.8 G/DL (32.0-36.0) Red Cell Distribution Width 11.2 % (11.6-14.8) L Platelet Count 149 K/UL (150-450) L Mean Platelet Volume 7.8 FL (6.5-10.1) Neutrophils (%) (Auto) 54.8 % (45.0-75.0) Lymphocytes (%) (Auto) 32.0 % (20.0-45.0) Monocytes (%) (Auto) 7.7 % (1.0-10.0) Eosinophils (%) (Auto) 4.4 % (0.0-3.0) H Basophils (%) (Auto) 1.1 % (0.0-2.0) Sodium Level 138 MMOL/L (136-145) Potassium Level 4.7 MMOL/L (3.5-5.1) Chloride Level 102 MMOL/L (98-107) Carbon Dioxide Level 31 MMOL/L (21-32) Anion Gap 6 mmol/L (5-15) Blood Urea Nitrogen 14 mg/dL (7-18) Creatinine 1.8 MG/DL (0.55-1.30) H Estimat Glomerular Filtration Rate 37.5 mL/min (>60) Glucose Level 81 MG/DL (74-106) Calcium Level 8.5 MG/DL (8.5-10.1) Objective HEAD AND NECK: No JVD. LUNGS: Clear. CARDIOVASCULAR: Regular S1 and S2 with no gallop or murmur. ABDOMEN: Soft. EXTREMITIES: No pitting edema. Sheng Martin MD Mar 11, 2020 12:25
--- NOTE | 2020-03-11 12:39 | Nephrology Progress Note ---
Assessment/Plan Problem List: (1) Renal insufficiency Assessment: Most likely chronic (2) Hemorrhoid prolapse (3) HTN (hypertension) (4) Anemia (5) UTI (urinary tract infection) Assessment Renal failure most likely chronic, may have an acute component superimposed. Evidence of UTI Anemia Hypothyroidism Hemorrhoid prolapse History of hypertension Schizophrenia Plan Serum creatinine is stable at 1.8 today Avoid nephrotoxic: Kidney ultrasound and chest x-ray ordered, results pending Keep the blood pressure in check Anemia work-up Continue per psych management Keep hydrated Flomax at bedtime Monitor renal parameters. Kidney ultrasound: BILATERAL ECHOGENIC KIDNEYS WITH CYSTIC CHANGES. MILD RIGHT HYDRONEPHROSIS WHICH IMPROVED AFTER VOIDING. SMALL RIGHT INTRARENAL STONE. MODERATE TO SEVERE LEFT HYDRONEPHROSIS. LARGE SHADOWING CALCIFICATION LOWER POLE LEFT KIDNEY PERHAPS A STAGHORN CALCULUS. TRABECULATED URINARY BLADDER WITH A SMALL DIVERTICULUM. Subjective ROS Limited/Unobtainable: No Constitutional: Reports: malaise Objective Objective Last 24 Hour Vital Signs Date Time Temp Pulse Resp B/P (MAP) Pulse Ox O2 Delivery O2 Flow Rate FiO2 03/11/20 11:59 98.2 63 19 107/75 (86) 97 03/11/20 09:00 Room Air 03/11/20 08:00 97.8 62 19 119/81 (94) 97 03/11/20 04:00 97.9 65 18 140/86 (104) 97 03/11/20 00:00 97.8 60 18 126/80 (95) 98 03/10/20 21:01 Room Air 03/10/20 20:00 98.4 58 18 135/89 (104) 95 03/10/20 16:00 97.7 59 18 134/76 (95) 95 Intake and Output 03/10/20 03/11/20 19:00 07:00 Intake Total 720 ml Balance 720 ml Intake Oral 720 ml # Voids 5 Laboratory Tests 03/11/20 05:55: White Blood Count 4.3L, Red Blood Count 3.40L, Hemoglobin 11.4L, Hematocrit 34.6L, Mean Corpuscular Volume 102H, Mean Corpuscular Hemoglobin 33.4H, Mean Corpuscular Hemoglobin Concent 32.8, Red Cell Distribution Width 11.2L, Platelet Count 149L, Mean Platelet Volume 7.8, Neutrophils (%) (Auto) 54.8, Lymphocytes (%) (Auto) 32.0, Monocytes (%) (Auto) 7.7, Eosinophils (%) (Auto) 4.4H, Basophils (%) (Auto) 1.1, Sodium Level 138, Potassium Level 4.7, Chloride Level 102, Carbon Dioxide Level 31, Anion Gap 6, Blood Urea Nitrogen 14, Creatinine 1.8H, Estimat Glomerular Filtration Rate 37.5, Glucose Level 81, Calcium Level 8.5 Height (Feet): 5 Height (Inches): 8.00 Weight (Pounds): 150 General Appearance: no apparent distress Cardiovascular: normal rate Respiratory/Chest: lungs clear Abdomen: soft Clay Ruggiero MD Mar 11, 2020 12:39
--- NOTE | 2020-03-11 15:14 | Surgery Progress Note ---
Surgery Progress Note Subjective Symptoms: improved, tolerating diet, voiding well, passing flatus, BM Objective Last 24 Hour Vital Signs Date Time Temp Pulse Resp B/P (MAP) Pulse Ox O2 Delivery O2 Flow Rate FiO2 03/11/20 11:59 98.2 63 19 107/75 (86) 97 03/11/20 09:00 Room Air 03/11/20 08:00 97.8 62 19 119/81 (94) 97 03/11/20 04:00 97.9 65 18 140/86 (104) 97 03/11/20 00:00 97.8 60 18 126/80 (95) 98 03/10/20 21:01 Room Air 03/10/20 20:00 98.4 58 18 135/89 (104) 95 03/10/20 16:00 97.7 59 18 134/76 (95) 95 I&O Intake and Output 03/10/20 03/11/20 19:00 07:00 Intake Total 720 ml Balance 720 ml Intake Oral 720 ml # Voids 5 Cardiovascular: RSR Respiratory: clear Abdomen: soft, non-tender, present bowel sounds Extremities: no edema, no tenderness, no cyanosis Laboratory Tests Test 03/11/20 05:55 White Blood Count 4.3 K/UL (4.8-10.8) L Red Blood Count 3.40 M/UL (4.70-6.10) L Hemoglobin 11.4 G/DL (14.2-18.0) L Hematocrit 34.6 % (42.0-52.0) L Mean Corpuscular Volume 102 FL (80-99) H Mean Corpuscular Hemoglobin 33.4 PG (27.0-31.0) H Mean Corpuscular Hemoglobin Concent 32.8 G/DL (32.0-36.0) Red Cell Distribution Width 11.2 % (11.6-14.8) L Platelet Count 149 K/UL (150-450) L Mean Platelet Volume 7.8 FL (6.5-10.1) Neutrophils (%) (Auto) 54.8 % (45.0-75.0) Lymphocytes (%) (Auto) 32.0 % (20.0-45.0) Monocytes (%) (Auto) 7.7 % (1.0-10.0) Eosinophils (%) (Auto) 4.4 % (0.0-3.0) H Basophils (%) (Auto) 1.1 % (0.0-2.0) Sodium Level 138 MMOL/L (136-145) Potassium Level 4.7 MMOL/L (3.5-5.1) Chloride Level 102 MMOL/L (98-107) Carbon Dioxide Level 31 MMOL/L (21-32) Anion Gap 6 mmol/L (5-15) Blood Urea Nitrogen 14 mg/dL (7-18) Creatinine 1.8 MG/DL (0.55-1.30) H Estimat Glomerular Filtration Rate 37.5 mL/min (>60) Glucose Level 81 MG/DL (74-106) Calcium Level 8.5 MG/DL (8.5-10.1) Plan Problems: (1) Hemorrhoid prolapse Assessment & Plan: See below (2) Rectal prolapse Assessment & Plan: 69-year-old male abnormal rectal perirectal lesion thought to be potential rectal prolapse. On further evaluation this is a thrombosed hemorrhoid. Currently soft nontender mobile patient having normal bowel movements good rectal function examination proceeded without significant discomfort. Likely low bit more chronic than anticipated or noticed. No acute surgical intervention indicated recommended at this time recommend local care with hemorrhoid cream as needed. Okay for diet bowel regimen will monitor. Thank you for let me participate in patient's care stable comfortable walking around no complaints d/c planning pending d/c late entry patient seen earlier d/c to facility plan today Manny Wang Mar 11, 2020 15:14
== END 2020-03-11 13:51 | DRG 394 ==
LOC: EDBD 07:10 → EMR 07:45 → 4E 08:19 → EDBEDREQ 08:53
DX: K62.3 Rectal prolapse (principal); N39.0 Urinary tract infection, site not specified; F20.0 Paranoid schizophrenia; F33.0 Major depressive disorder, recurrent, mild; K64.8 Other hemorrhoids; I12.9 Hypertensive chronic kidney disease with stage 1 through stage 4 chronic kidney disease, or unspecified chronic kidney disease; N18.9 Chronic kidney disease, unspecified; F29 Unspecified psychosis not due to a substance or known physiological condition
CPT/HCPCS: 36415; 71045; 74176; 76770; 80048; 80053; 80061; 80076; 81003; 82607; 82728; 82746; 83036; 83540; 83550; 83690; 83735; 83880; 84100; 84439; 84443; 84550; 85025; 85610; 85730; 86850; 86900; 86901; 87081; 87086; 93005; 93306; 97803; 99285